=== PATIENT | male | born 1935 | race Caucasian/White ===

== ENCOUNTER → 2017-11-16 | Outpatient (CLI) | payer MEDICARE ==
[~2017-11-16] MED LIST: HTN MED; LISI20TA; METO-352; METO10TA3
[2017-11-16 09:12] LABS: ALBUMIN 4.5 GM/DL (3.2-4.5); BILIRUBIN,TOTAL 0.9 MG/DL (0.1-1.0); CALCIUM 10.1 MG/DL (8.5-10.1); CREATININE SERUM 1.19 MG/DL (0.60-1.30); POTASSIUM 4.3 MMOL/L (3.6-5.0); TOTAL PROTEIN 8.2 GM/DL (6.4-8.2)
== END ==
LOC: LAB 08:33
PROVIDERS: ATTEND Internal Medicine Cardiovascular Disease
DX: I25.10 Atherosclerotic heart disease of native coronary artery without angina pectoris (principal); E78.4 Other hyperlipidemia
CPT/HCPCS: 36415; 80053; 80061

== ENCOUNTER → 2018-12-22 | Outpatient (CLI) | payer MEDICARE | LOC: CARD 11:29 | PROVIDERS: ATTEND Internal Medicine Cardiovascular Disease | DX: I49.3 Ventricular premature depolarization (principal); I25.10 Atherosclerotic heart disease of native coronary artery without angina pectoris; I25.5 Ischemic cardiomyopathy; I11.0 Hypertensive heart disease with heart failure; I50.22 Chronic systolic (congestive) heart failure; E78.5 Hyperlipidemia, unspecified; I44.1 Atrioventricular block, second degree | CPT/HCPCS: 93225; 93226 ==

== ENCOUNTER → 2018-12-28 | Outpatient (CLI) | payer MEDICARE ==
[2018-12-28 08:51] LABS: BASOPHILS % (AUTO) 1 % (0-10); EOSINOPHILS # (AUTO) 0.2 10^3/uL (0.0-0.3); EOSINOPHILS % (AUTO) 4 % (0-10); HEMATOCRIT 45 % (40-54); HEMOGLOBIN 15.1 G/DL (13.3-17.7); LYMPHOCYTES # (AUTO) 1.2 X 10^3 (1.0-4.0); LYMPHOCYTES % (AUTO) 19 % (12-44); MEAN CORPUSCULAR HEMOGLOBIN 32 PG (25-34); MEAN CORPUSCULAR HGB CONC 33 G/DL (32-36); MEAN CORPUSCULAR VOLUME 96 FL (80-99); MONOCYTES # (AUTO) 0.9 X 10^3 (0.0-1.0); MONOCYTES % (AUTO) 14 % (0-12); NEUTROPHILS % (AUTO) 64 % (42-75); PLATELET COUNT 148 10^3/uL (130-400); RED CELL DISTRIBUTION WIDTH 13.4 % (10.0-14.5); WHITE BLOOD COUNT 6.3 10^3/uL (4.3-11.0)
[2018-12-28 09:14] LABS: ALANINE AMINOTRANSFERASE 20 U/L (0-55); ALBUMIN 4.3 GM/DL (3.2-4.5); ALKALINE PHOSPHATASE 85 U/L (40-136); BILIRUBIN,TOTAL 0.7 MG/DL (0.1-1.0); BUN/CREATININE RATIO 28; CALCIUM 9.8 MG/DL (8.5-10.1); CARBON DIOXIDE 23 MMOL/L (21-32); CHLORIDE 108 MMOL/L (98-107); CHOLESTEROL 93 MG/DL (< 200); CREATININE SERUM 1.14 MG/DL (0.60-1.30); GFR ESTIMATED > 60; GLUCOSE 93 MG/DL (70-105); HDL CHOLESTEROL 30 MG/DL (40-60); POTASSIUM 4.3 MMOL/L (3.6-5.0); SODIUM 140 MMOL/L (135-145); TOTAL PROTEIN 7.4 GM/DL (6.4-8.2); TRIGLYCERIDES 95 MG/DL (<150); VLDL CHOLESTEROL 19 MG/DL (5-40)
== END ==
LOC: LAB 08:30
PROVIDERS: ATTEND Internal Medicine Cardiovascular Disease
DX: I44.1 Atrioventricular block, second degree (principal); I49.3 Ventricular premature depolarization; I25.5 Ischemic cardiomyopathy; I11.0 Hypertensive heart disease with heart failure; E78.5 Hyperlipidemia, unspecified; I50.22 Chronic systolic (congestive) heart failure; I25.10 Atherosclerotic heart disease of native coronary artery without angina pectoris
CPT/HCPCS: 36415; 80053; 80061; 83735; 84443; 85025

== ENCOUNTER 2021-09-07 14:18 | Inpatient (IN) | payer MEDICARE ==
[~2021-09-07] VITALS: Ht 177 cm; Wt 84.7 kg
[2021-09-07] MEDS ORDERED: ASPIRIN 81 MG CHEW (CHILDREN'S ASA) PO ONE (14:45)
[2021-09-07] MEDS ORDERED: FUROSEMIDE 40 MG/4 ML INJ (LASIX) ONE (14:57)
[2021-09-07] MEDS ORDERED: FUROSEMIDE 40 MG/4 ML INJ (LASIX) IVP ONE (15:00)
[2021-09-07] MEDS ORDERED: ENOXAPARIN 40 MG/0.4 ML (LOVENOX) SYR SC ONE (15:00)
[2021-09-07 15:02] LABS: BASOPHILS # (AUTO) 0.1 10^3/uL (0.0-0.1); BASOPHILS % (AUTO) 1 % (0-10); EOSINOPHILS % (AUTO) 3 % (0-10); HEMOGLOBIN 17.2 g/dL (13.3-17.7); MEAN CORPUSCULAR HEMOGLOBIN 33 pg (25-34)
--- NOTE | 2021-09-07 15:03 | ED Cardiac General ---
History of Present Illness General Chief Complaint: Cardiac/General Problems Stated Complaint: LEGS SWELLING Source: patient Exam Limitations: no limitations (VIDYA ZUNIGA APRN) History of Present Illness Date Seen by Provider: Sep 07, 2021 Time Seen by Provider: 15:00 Initial Comments To ER from [facility] with reports of bradycardia. He presented there by private vehicle accompanied by his with reports of bilateral lower extremity swelling,, scrotal swelling, shortness of breath. No chest pain. Follows with Dr. Tello, history of coronary artery disease with 2 coronary stents. He informs me that he does not want to be resuscitated or placed on a ventilator if his heart should stop. He is okay with having a pacemaker placed. Timing/Duration: 1-2 days Severity: moderate Activities at Onset: none Prior CP/Workup: no prior chest pain NTG SL ALLEY TENDER: No ASA po ALLEY TENDER: No Associated Systoms: No Chest Pain, No Cough; Shortness of Air (VIDYA ZUNIGA APRN) Allergies and Home Medications Allergies Coded Allergies: Penicillins (Unverified Allergy, Mild, 12/31/08) Sulfa (Sulfonamide Antibiotics) (Verified Allergy, Unknown, 12/31/08) Patient Home Medication List Home Medication List Reviewed: Yes (VIDYA ZUNIGA APRN) Lisinopril (Zestril) 20 Mg Tablet, (Reported) Entered as Reported by: LANI CANNON on 12/31/08704 Metoclopramide Hcl (Metoclopramide Hcl) 10 Mg Tablet, (Reported) Entered as Reported by: LANI CANNON on 12/31/08704 Metoprolol Succinate (Toprol Xl) 50 Mg Tab, (Reported) Entered as Reported by: LANI CANNON on 12/31/08704 [Htn Med] , (Reported) Entered as Reported by: MARIMAR DIEGO on 12/31/08651 Review of Systems Review of Systems Constitutional: see HPI EENTM: No Symptoms Reported Respiratory: See HPI, Orthopnea Cardiovascular: See HPI, Chest Pain Gastrointestinal: No Symptoms Reported Genitourinary: No Symptoms Reported Musculoskeletal: no symptoms reported Skin: no symptoms reported Psychiatric/Neurological: No Symptoms Reported Endocrine: No Symptoms Reported Hematologic/Lymphatic: No Symptoms Reported (VIDYA ZUNIGA APRN) Past Ggefkog-Surgti-Nhxaty Hx Past Medical History Reproductive Disorders: No (VIDYA ZUNIGA APRN) Physical Exam Vital Signs Capillary Refill : (VIDYA ZUNIGA APRN) Height, Weight, BMI Height: '" Weight: lbs. oz. kg; BMI Method: General Appearance: No Apparent Distress, WD/WN, Other (Alert mentating well blood pressure is 180/120. Heart rate is 30 for complete heart block. Oxygen 99% respiratory rate 24. Defibrillator patches attached to them upon arrival to ER, Lasix Lovenox and aspirin given. Dr. Tello notified.) Respiratory: No Accessory Muscle Use, No Respiratory Distress Cardiovascular: Bradycardia, Irregularly Irregular Gastrointestinal: Normal Bowel Sounds, Non Tender, Soft Extremity: No Pedal Edema (3+ pitting edema up to the knees bilaterally.), Other (Cyanotic extremities and ears) Neurologic/Psychiatric: Alert Skin: Normal Color, Warm/Dry (VIDYA ZUNIGA APRN) Extremity: Pedal Edema (3+ bilateral lower extremity) Neurologic/Psychiatric: Oriented x3, Other (Hard of hearing) (SABA CRAIG MD) Progress/Results/Core Measures Results/Orders Lab Results Laboratory Tests Test 09/07/21 14:54 Range/Units (SABA CRAIG MD) My Orders Orders - SABA CRAIG MD Furosemide Injection (Lasix Injection) (09/07/21 14:57) (SABA CRAIG MD) Medications Given in ED Current Medications Medications Dose Ordered Sig/Sarah Route Start Time Stop Time Status Last Admin Dose Admin Aspirin 324 mg ONCE ONCE PO 09/07/21 14:45 09/07/21 14:46 DC 09/07/21 14:59 324 MG (SABA CRAIG MD) Progress Progress Note : Progress Note 1506: I did see the patient with Vidya Zuniga APRN and was at bedside for evaluation. Patient does show clear third-degree heart block on EKG and monitor. Blood pressure is appropriate though and actually he is slightly hypertensive. He does have marked edema to both legs. Denies chest pain currently. I did discuss the case with Dr Mejia and reviewed EKG and current findings. He is recommending ASA 324 mg p.o., Lasix 40 mg IV, Lovenox 40 mg subcu and he will be on consult. Recommending admission with pacemaker place ment to follow likely tomorrow. He is okay with cardiac stepdown bed. Patient previously was under the service of Dr. Love but now does not have primary physician and usually just sees Dr Mejia. He will be admitted to the hospitalist service. Pending labs for review and we will ensure appropriate electrolyte balance. Admit, inpatient status. Patient and family updated by me and agree with the plan. We did discuss CODE STATUS with the patient and and he request DNR status. (SABA CRAIG MD) Initial ECG Impression Date: Sep 07, 2021 Initial ECG Impression Time: 14:42 Initial ECG Rate: 35 Comment Third-degree heart block with junctional escape rhythm and interventricular conduction delay. Mild ST elevation in leads II, III and aVF it would appear. Left axis deviation noted. I did discuss the case with Dr. Mejia and reviewed EKG with him. He does not believe this is ST elevation AL and represents more escape rhythm with interventricular conduction delay for which I agree. (SABA CRAIG MD) Departure Communication (Admissions) NAME: [facility] REC#: [id number] PT STATUS: REG ER : 1935 PHYSICIAN: VIDYA ZUNIGA APRN ADMIT DATE: 09/07/21/ER Draft Date of Exam:09/07/21 CHEST 1 VIEW, AP/PA ONLY Indication: Chest pain. Comparison: None. Discussion: Single portable upright view of the chest was obtained. The fibular patches are present. Cardiomegaly is noted. There is likely a small right pleural effusion. No consolidation. No pneumothorax or osseous abnormality. Impression: 1. Cardiomegaly with small right pleural effusion. Dictated on workstation # [id number] Dict: 09/07/21 1522 Trans: 09/07/21 1526 [facility] [id number] Interpreted by: MARTÍNEZ MOJICA MD Electronically signed by: (VIDYA ZUNIGA APRN) Time/Spoke to Consulting Phy: 14:58 (SABA CRAIG MD) Impression Primary Impression: Complete heart block Additional Impression: CHF (congestive heart failure) Disposition: ADMITTED INPATIENT Condition: Stable Admissions Decision to Admit Reason: Admit from ER (General) Decision to Admit/Date: Sep 07, 2021 Time/Decision to Admit Time: 15:03 (VIDYA ZUNIGA APRN) Departure-Patient Inst. Referrals: NO,LOCAL PHYSICIAN (PCP/Family) Primary Care Physician VIDYA ZUNIGA APRN Sep 07, 2021 15:03 SABA CRAIG MD Sep 07, 2021 15:10
[2021-09-07 15:04] LABS: EOSINOPHILS # (AUTO) 0.2 10^3/uL (0.0-0.3); HEMATOCRIT 52 % (40-54); LYMPHOCYTES # (AUTO) 0.4 10^3/uL (1.0-4.0); LYMPHOCYTES % (AUTO) 4 % (12-44); MEAN CORPUSCULAR HGB CONC 33 g/dL (32-36); MEAN CORPUSCULAR VOLUME 100 fL (80-99); MEAN PLATELET VOLUME 13.5 fL (9.0-12.2); MONOCYTES # (AUTO) 0.9 10^3/uL (0.0-1.0); MONOCYTES % (AUTO) 11 % (0-12); NEUTROPHILS # (AUTO) 6.9 10^3/uL (1.8-7.8); NEUTROPHILS % (AUTO) 81 % (42-75); PLATELET COUNT 118 10^3/uL (130-400); WHITE BLOOD COUNT 8.5 10^3/uL (4.3-11.0)
[2021-09-07 15:16] LABS: INR 1.1 (0.8-1.4); PROTHROMBIN TIME PATIENT 14.9 SEC (12.2-14.7)
[2021-09-07 15:18] LABS: ALBUMIN 3.5 GM/DL (3.2-4.5); POTASSIUM 4.8 MMOL/L (3.6-5.0)
[2021-09-07 15:19] LABS: CALCIUM 9.1 MG/DL (8.5-10.1)
[2021-09-07 15:22] LABS: BILIRUBIN,TOTAL 1.3 MG/DL (0.1-1.0)
[2021-09-07 15:24] LABS: CREATININE SERUM 1.12 MG/DL (0.60-1.30); EOSINOPHILS % (MANUAL) 3 %; LYMPHOCYTES % (MANUAL) 5 %; MONOCYTES % (MANUAL) 9 %; NEUTROPHILS % (MANUAL) 83 %; RBC MORPH NORMAL
--- NOTE | 2021-09-07 15:26 | Diagnostic Imaging Report ---
Indication: Chest pain. Comparison: None. Discussion: Single portable upright view of the chest was obtained. The fibular patches are present. Cardiomegaly is noted. There is likely a small right pleural effusion. No consolidation. No pneumothorax or osseous abnormality. Impression: 1. Cardiomegaly with small right pleural effusion. Dictated by: Dictated on workstation # [id number]
[2021-09-07 15:27] LABS: MAGNESIUM 1.7 MG/DL (1.6-2.4)
[2021-09-07 16:40] VITALS: BP 144/83
[2021-09-07] MEDS ORDERED: CATHETER FLUSH 10 ML SYR IV PRN (17:00)
[2021-09-07] MEDS ORDERED: FAMO20TA3 PO (18:05)
[2021-09-07] MEDS ORDERED: ASPI-999 PO (18:05)
[2021-09-07] MEDS ORDERED: MTP100TCR PO (18:05)
[2021-09-07] MEDS ORDERED: LOSA100T57 PO (18:05)
[2021-09-07] MEDS ORDERED: LOVA20TA2 PO (18:05)
[2021-09-07] MEDS: FUROSEMIDE 40 MG/4 ML INJ (LASIX) IVP SCH (21:27)
[2021-09-07] MEDS: CATHETER FLUSH 10 ML SYR IV SCH (21:28)
[2021-09-07] MEDS ORDERED: ACETAMINOPHEN 325 MG TABLET ONE (21:42)
[2021-09-07] MEDS ORDERED: ACETAMINOPHEN 500 MG TAB (TYLENOL) PO PRN (21:45)
[2021-09-08 06:10] LABS: BASOPHILS # (AUTO) 0.1 10^3/uL (0.0-0.1); BASOPHILS % (AUTO) 1 % (0-10)
[2021-09-08 06:12] LABS: EOSINOPHILS # (AUTO) 0.3 10^3/uL (0.0-0.3); EOSINOPHILS % (AUTO) 3 % (0-10); HEMATOCRIT 49 % (40-54); HEMOGLOBIN 16.6 g/dL (13.3-17.7); LYMPHOCYTES # (AUTO) 0.4 10^3/uL (1.0-4.0); LYMPHOCYTES % (AUTO) 4 % (12-44); MEAN CORPUSCULAR HEMOGLOBIN 33 pg (25-34); MEAN CORPUSCULAR HGB CONC 34 g/dL (32-36); MEAN CORPUSCULAR VOLUME 97 fL (80-99); MONOCYTES % (AUTO) 11 % (0-12); NEUTROPHILS # (AUTO) 7.2 10^3/uL (1.8-7.8); NEUTROPHILS % (AUTO) 81 % (42-75); PLATELET COUNT 99 10^3/uL (130-400); WHITE BLOOD COUNT 8.9 10^3/uL (4.3-11.0)
[2021-09-08 06:35] LABS: TRIGLYCERIDES 69 MG/DL (<150); VLDL CHOLESTEROL 14 MG/DL (5-40)
[2021-09-08 06:40] LABS: CHOLESTEROL 78 MG/DL (< 200); HDL CHOLESTEROL 35 MG/DL (40-60)
[2021-09-08 06:48] LABS: POTASSIUM 4.2 MMOL/L (3.6-5.0)
[2021-09-08 06:49] LABS: CALCIUM 8.8 MG/DL (8.5-10.1)
[2021-09-08 06:53] LABS: CREATININE SERUM 1.16 MG/DL (0.60-1.30)
[2021-09-08 07:52] LABS: TOTAL PROTEIN 5.9 GM/DL (6.4-8.2)
[2021-09-08 07:54] LABS: BILIRUBIN,TOTAL 1.7 MG/DL (0.1-1.0)
[2021-09-08 07:58] LABS: BILIRUBIN,DIRECT 0.8 MG/DL (0.0-0.3); BILIRUBIN,INDIRECT 0.9 MG/DL
[2021-09-08] MEDS: FUROSEMIDE 40 MG/4 ML INJ (LASIX) IVP SCH (08:06)
--- NOTE | 2021-09-08 09:32 | History & Physical ---
HPI History of Present Illness: Having shortness of breath for about a month. His granddaughter works at a senior care and he had her bring him a COVID19 test which was negative. The next morning his grandson and daughter took him to the clinic and they were told to bring him to the hospital right away. He states he feels about the same today. He has not had COVID vaccination, he is interested in it, but wants to talk to his first. Source: patient Exam Limitations: clinical condition Date seen by provider: Sep 08, 2021 Time Seen by Provider: 09:35 Attending Physician Gris Sin MD PCP No,Local Physician Consult Date of Admission Sep 07, 2021 at 15:06 Home Medications Home Medications Reviewed patient Home Medication Reconciliation performed by pharmacy medication reconciliations biodiesel production technician and/or nursing. Patients Allergies have been reviewed. Allergies Coded Allergies: Penicillins (Unverified Allergy, Mild, 12/31/08) Sulfa (Sulfonamide Antibiotics) (Verified Allergy, Unknown, 12/31/08) LAZ-Zjwmeg-Akopxl Hx Patient Social History Smoking Status: Former Smoker (quit around 1989) Alcohol Use?: No Have you traveled recently?: No Immunizations Up To Date Influenza Vaccine Up-to-Date: No; Not Current First/Initial COVID19 Vaccinat: None Second COVID19 Vaccination Cabrera: None Third COVID19 Vaccination Date: None Past Medical History PMHx: Coronary artery disease Hypertension SurgHx: Coronary artery stenting Review of Systems (CHC) Constitutional: No fever EENTM: other (runny nose all the time); No throat pain Respiratory: cough (off and on for some time), short of breath Cardiovascular: No chest pain Gastrointestinal: abdominal pain (occasional bellyache); No constipation; diarrhea (occasional); No nausea, No vomiting Genitourinary: No dysuria Musculoskeletal: joint pain (right hand hurting this morning and about a week ago); No muscle pain Skin: rash (around testicles, non-itching) Reviewed Test Results Reviewed Test Results Lab Laboratory Tests Test 09/07/21 14:54 09/08/21 05:58 Range/Units White Blood Count 8.5 8.9 4.3-11.0 10^3/uL Red Blood Count 5.19 5.04 4.30-5.52 10^6/uL Hemoglobin 17.2 16.6 13.3-17.7 g/dL Hematocrit 52 49 40-54 % Mean Corpuscular Volume 100 H 97 80-99 fL Mean Corpuscular Hemoglobin 33 33 25-34 pg Mean Corpuscular Hemoglobin Concent 33 34 32-36 g/dL Red Cell Distribution Width 14.6 H 14.4 10.0-14.5 % Platelet Count 118 L 99 L 130-400 10^3/uL Mean Platelet Volume 13.5 H 13.0 H 9.0-12.2 fL Immature Granulocyte % (Auto) 0 0 % Neutrophils (%) (Auto) 81 H 81 H 42-75 % Lymphocytes (%) (Auto) 4 L 4 L 12-44 % Monocytes (%) (Auto) 11 11 0-12 % Eosinophils (%) (Auto) 3 3 0-10 % Basophils (%) (Auto) 1 1 0-10 % Neutrophils # (Auto) 6.9 7.2 1.8-7.8 10^3/uL Lymphocytes # (Auto) 0.4 L 0.4 L 1.0-4.0 10^3/uL Monocytes # (Auto) 0.9 1.0 0.0-1.0 10^3/uL Eosinophils # (Auto) 0.2 0.3 0.0-0.3 10^3/uL Basophils # (Auto) 0.1 0.1 0.0-0.1 10^3/uL Immature Granulocyte # (Auto) 0.0 0.0 0.0-0.1 10^3/uL Neutrophils % (Manual) 83 % Lymphocytes % (Manual) 5 % Monocytes % (Manual) 9 % Eosinophils % (Manual) 3 % Percent Immature Platelet Fraction 8.7 H 8.1 H 0.0-7.6 % Blood Morphology Comment NORMAL Prothrombin Time 14.9 H 12.2-14.7 SEC INR Comment 1.1 0.8-1.4 Activated Partial Thromboplast Time 30 24-35 SEC Sodium Level 137 139 135-145 MMOL/L Potassium Level 4.8 4.2 3.6-5.0 MMOL/L Chloride Level 109 H 105 98-107 MMOL/L Carbon Dioxide Level 18 L 21 21-32 MMOL/L Anion Gap 10 13 5-14 MMOL/L Blood Urea Nitrogen 37 H 35 H 7-18 MG/DL Creatinine 1.12 1.16 0.60-1.30 MG/DL Estimat Glomerular Filtration Rate 62 60 BUN/Creatinine Ratio 33 30 Glucose Level 100 90 70-105 MG/DL Calcium Level 9.1 8.8 8.5-10.1 MG/DL Corrected Calcium 9.5 8.5-10.1 MG/DL Magnesium Level 1.7 1.6-2.4 MG/DL Total Bilirubin 1.3 H 1.7 H 0.1-1.0 MG/DL Aspartate Amino Transf (AST/SGOT) 49 H 45 H 5-34 U/L Alanine Aminotransferase (ALT/SGPT) 61 H 50 0-55 U/L Alkaline Phosphatase 143 H 119 40-136 U/L Myoglobin 155.7 H 10.0-92.0 NG/ML Troponin I 0.091 H <0.028 NG/ML B-Type Natriuretic Peptide 3652.2 H <100.0 PG/ML Total Protein 7.0 5.9 L 6.4-8.2 GM/DL Albumin 3.5 3.0 L 3.2-4.5 GM/DL Direct Bilirubin 0.8 H 0.0-0.3 MG/DL Indirect Bilirubin 0.9 MG/DL Triglycerides Level 69 <150 MG/DL Cholesterol Level 78 < 200 MG/DL LDL Cholesterol Direct 28 1-129 MG/DL VLDL Cholesterol 14 5-40 MG/DL HDL Cholesterol 35 L 40-60 MG/DL Radiology CXR 09/07/21: Impression: 1. Cardiomegaly with small right pleural effusion. Physical Exam-(CHC) Physical Exam Vital Signs VS - Last 72 Hours, by Label 09/07/21 09/07/21 09/07/21 09/07/21 14:31 16:40 16:49 16:51 Temp 36.6 Pulse 35 34 35 Resp 25 22 20 B/P (MAP) 160/102 (121) 144/83 139/73 Pulse Ox 94 95 99 O2 Delivery Room Air Room Air Room Air Room Air 09/07/21 09/07/21 09/07/21 09/07/21 16:52 19:00 19:41 21:00 Temp 36.8 Pulse 33 40 35 Resp 21 B/P (MAP) 144/79 Pulse Ox 96 O2 Delivery Room Air Room Air 09/08/21 09/08/21 09/08/2109/08/21 00:00 01:00 04:00 07:00 Temp 37.0 36.5 Pulse 36 36 35 39 Resp 14 22 B/P (MAP) 159/62 114/66 Pulse Ox 94 96 O2 Delivery Room Air Room Air 09/08/21 08:10 Pulse 36 Resp 14 B/P (MAP) 180/91 Pulse Ox 96 O2 Delivery Room Air Capillary Refill : Less Than 3 Seconds General Appearance: no apparent distress Respiratory: rales Cardiovascular: no murmur, bradycardia Gastrointestinal: normal bowel sounds, non tender, soft Extremities: pedal edema (2+ pitting edema to above knees) Neurologic/Psychiatric: alert, normal mood/affect, oriented x 3 Skin: other (erythema with extension to thighs over scrotum) Assessment/Plan Assessment/Plan Admission Status: Inpatient Order (span 2 midnights) Reason for Inpatient Admission: Sevre bradycardia with CHF exacerbation (1) Complete heart block Status: Acute Assessment & Plan: Hemodynamically stable so far, plan for pacemaker per Cardiology later today. (2) Coronary artery disease Status: Chronic Qualifiers: Qualified Codes: I25.10 - Atherosclerotic heart disease of [place] coronary artery without angina pectoris (3) CHF (congestive heart failure) Status: Acute Assessment & Plan: Cardiology consulted, appreciate recommendations. Currently on lasix 40 mg IV BID. 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 (6) DVT prophylaxis Status: Acute Assessment & Plan: Enoxaparin when okay with Cardiology Clinical Quality Measures AMI/AHF: ASA po Prior to arrival: GRIS Leija MD Sep 08, 2021 09:32
[2021-09-08] MEDS ORDERED: ARTIFICAL TEARS 0.4 ML UNIT DOSE (REFRESH PLUS) OU PRN (09:45)
[2021-09-08] MEDS ORDERED: MIDAZOLAM 5 MG/5 ML (VERSED) VIAL ONE (10:19)
[2021-09-08] MEDS ORDERED: fentaNYL INJ 100 MCG/2 ML AMP ONE (10:19)
[2021-09-08] MEDS ORDERED: LIDOCAINE 1% INJ 20 ML 20 ML VIAL ONE (10:20)
[2021-09-08] MEDS ORDERED: NS IV 1000 ML 1,000 ML ONE ×2 (10:20→10:50)
[2021-09-08] MEDS ORDERED: HEParin (CATH LAB) 1,000 ML IV ONE (10:20)
[2021-09-08] MEDS ORDERED: VANCOMYCIN INJECTION 0.1 MG in NS (IVPB) 250 ML IV SCH (10:30)
[2021-09-08] MEDS ORDERED: VANCOMYCIN 1500 MG/NS 500 ML IVPB IV NR ×2 (11:00)
--- NOTE | 2021-09-08 11:09 | Consultation-Cardiology ---
HPI-Cardiology Cardiology Consultation: Date of Consultation 09/08/21 Time Seen by a Provider: 09:30 Date of Admission Attending Physician Viola Sin MD Admitting Physician No,Local Physician Consulting Physician VIPUL HOYOS MD, MA, FACP, FACC, FSCAI, CCDS HPI: Chief Complaint: Shortness of breath 85 yo man with increasing shortness of breath for several weeks. Has been noticing increasing leg swelling and also some scrotal swelling. Denies cp or palp or syncope. Notes gen malaise and weakness. Denies fever or chills Review of Systems-Cardiology Review of Systems Constitutional: As described under HPI Eyes: No vision change Ears/Nose/Throat: chronic hearing loss; No ear pain, No nasal drainage, No recent hearing loss Respiratory: As described under HPI Cardiovascular: As described under HPI Gastrointestinal: No diarrhea, No nausea, No vomiting Genitourinary: No hematuria; other (chronic frequency of urination); No urine frequency changes Musculoskeletal: back pain (chronic) Skin: No rash, No ulcerations Psychiatric/Neurological: No seizure, No focal weakness, No syncope Hematologic: No bleeding abnormalities PHE-Gcmjpn-Yzseak Hx Patient Social History Smoking Status: Former Smoker (quit around 1989) Have you traveled recently?: No Alcohol Use?: No Pt feels they are or have been: No Past Medical History PMH As described under Assessment. Family Medical History Family Medical History: Does not report fam h/o early CAD Allergies and Home Medications Allergies Coded Allergies: Penicillins (Unverified Allergy, Mild, 12/31/08) Sulfa (Sulfonamide Antibiotics) (Verified Allergy, Unknown, 12/31/08) Patient Home Medication List Home Medication List Reviewed: Yes Aspirin (Aspirin) 81 Mg Tab.chew, 81 MG PO DAILY, (Reported) Entered as Reported by: VITO GARCES RN on 09/07/211804 Last Action: New Order Famotidine (Acid Creative Recruiter (FAMOTIDINE)) 20 Mg Tablet, 20 MG PO DAILY, (Reported) Entered as Reported by: VITO GARCES RN on 09/07/211804 Last Action: New Order Losartan Potassium (Losartan Potassium) 100 Mg Tablet, 100 MG PO DAILY, (Reporte d) Entered as Reported by: VITO GARCES RN on 09/07/211804 Last Action: New Order Lovastatin (Lovastatin) 20 Mg Tablet, 20 MG PO DAILY, (Reported) Entered as Reported by: VITO GARCES RN on 09/07/211804 Last Action: Converted Metoprolol Succinate (Metoprolol Succinate) 100 Mg Tab.er.24h, 100 MG PO DAILY, (Reported) Entered as Reported by: VITO GARCES RN on 09/07/211804 Last Action: New Order Discontinued Medications Lisinopril (Zestril) 20 Mg Tablet, (Reported) Discontinued Reason: No Longer Taking Entered as Reported by: LANI CANNON on 12/31/08704 Last Action: Discontinued Metoclopramide Hcl (Metoclopramide Hcl) 10 Mg Tablet, (Reported) Discontinued Reason: No Longer Taking Entered as Reported by: LANI CANNON on 12/31/08704 Last Action: Discontinued Metoprolol Succinate (Toprol Xl) 50 Mg Tab, (Reported) Discontinued Reason: No Longer Taking Entered as Reported by: LANI CANNON on 12/31/08704 Last Action: Discontinued [Htn Med] , (Reported) Discontinued Reason: No Longer Taking Entered as Reported by: MARIMAR DIEGO on 12/31/08651 Last Action: Discontinued Physical Exam-Cardiology Physical Exam Vital Signs/I&O 09/08/21 09/08/21 09/08/21 09/08/21 00:00 01:00 04:00 07:00 Temp 37.0 36.5 Pulse 36 36 35 39 Resp 14 22 B/P (MAP) 159/62 114/66 Pulse Ox 94 96 O2 Delivery Room Air Room Air 09/08/21 08:10 Pulse 36 Resp 14 B/P (MAP) 180/91 Pulse Ox 96 O2 Delivery Room Air 09/07/21 23:59 Intake Total 100 ml Output Total 1250 ml Balance -1150 ml Capillary Refill : Less Than 3 Seconds Constitutional: AAO x 3, well-developed, well-nourished HEENT: EOMI, hard of hearing; No xanthelasmas are seen Neck: carotid pulses are 2 + bilaterally, with good upstrokes Respiratory: No accessory muscle use; other (good air entry on both sides, diminished at the bases) Cardiovascular: regular rate-rhythm, S1 and S2, systolic murmur (soft [place] at card base) Gastrointestinal: No tender; soft; No guarding, No rebound; audible bowel sounds Extremities: swelling (2+ leg edema; mild to mod scrotal swelling on both sides); No clubbing, No cyanosis Neurologic/Psychiatric: oriented x 3, other (moves all limbs equally) Skin: No rash, No ulcerations Data Review Labs Laboratory Tests 09/07/21 14:54: White Blood Count 8.5, Red Blood Count 5.19, Hemoglobin 17.2, Hematocrit 52, Mean Corpuscular Volume 100H, Mean Corpuscular Hemoglobin 33, Mean Corpuscular Hemoglobin Concent 33, Red Cell Distribution Width 14.6H, Platelet Count 118L, Mean Platelet Volume 13.5H, Immature Granulocyte % (Auto) 0, Neutrophils (%) (Auto) 81H, Lymphocytes (%) (Auto) 4L, Monocytes (%) (Auto) 11, Eosinophils (%) (Auto) 3, Basophils (%) (Auto) 1, Neutrophils # (Auto) 6.9, Lymphocytes # (Auto) 0.4L, Monocytes # (Auto) 0.9, Eosinophils # (Auto) 0.2, Basophils # (Auto) 0.1, Immature Granulocyte # (Auto) 0.0, Neutrophils % (Manual) 83, Lymphocytes % (Manual) 5, Monocytes % (Manual) 9, Eosinophils % (Manual) 3, Percent Immature Platelet Fraction 8.7H, Blood Morphology Comment NORMAL, Prothrombin Time 14.9H, INR Comment 1.1, Activated Partial Thromboplast Time 30, Sodium Level 137, Potassium Level 4.8, Chloride Level 109H, Carbon Dioxide Level 18L, Anion Gap 10, Blood Urea Nitrogen 37H, Creatinine 1.12, Estimat Glomerular Filtration Rate 62, BUN/Creatinine Ratio 33, Glucose Level 100, Calcium Level 9.1, Corrected Calcium 9.5, Magnesium Level 1.7, Total Bilirubin 1.3H, Aspartate Amino Transf (AST/SGOT) 49H, Alanine Aminotransferase (ALT/SGPT) 61H, Alkaline Phosphatase 143H, Myoglobin 155.7H, Troponin I 0.091H, B-Type Natriuretic Peptide 3652.2H, Total Protein 7.0, Albumin 3.5 09/08/21 05:58: White Blood Count 8.9, Red Blood Count 5.04, Hemoglobin 16.6, Hematocrit 49, Mean Corpuscular Volume 97, Mean Corpuscular Hemoglobin 33, Mean Corpuscular He moglobin Concent 34, Red Cell Distribution Width 14.4, Platelet Count 99L, Mean Platelet Volume 13.0H, Immature Granulocyte % (Auto) 0, Neutrophils (%) (Auto) 81H, Lymphocytes (%) (Auto) 4L, Monocytes (%) (Auto) 11, Eosinophils (%) (Auto) 3, Basophils (%) (Auto) 1, Neutrophils # (Auto) 7.2, Lymphocytes # (Auto) 0.4L, Monocytes # (Auto) 1.0, Eosinophils # (Auto) 0.3, Basophils # (Auto) 0.1, Im mature Granulocyte # (Auto) 0.0, Percent Immature Platelet Fraction 8.1H, Sodium Level 139, Potassium Level 4.2, Chloride Level 105, Carbon Dioxide Level 21, Anion Gap 13, Blood Urea Nitrogen 35H, Creatinine 1.16, Estimat Glomerular Filtration Rate 60, BUN/Creatinine Ratio 30, Glucose Level 90, Calcium Level 8.8, Total Bilirubin 1.7H, Aspartate Amino Transf (AST/SGOT) 45H, Alanine Aminotransferase (ALT/SGPT) 50, Alkaline Phosphatase 119, Total Protein 5.9L, Albumin 3.0L, Direct Bilirubin 0.8H, Indirect Bilirubin 0.9, Triglycerides Level 69, Cholesterol Level 78, LDL Cholesterol Direct 28, VLDL Cholesterol 14, HDL Cholesterol 35L Laboratory Tests 09/07/21 14:54 09/08/21 05:58 A/P-Cardiology Assessment/Admission Diagnosis Complete heart block Coronary artery disease - Cardiac cath December 2008: with a history of drug-eluting stenting of the mid left anterior descending - Cardiac cath January 2009: LULI of the left circumflex obtuse marginal . - Refuses MPI. ICM: - Echocardiogram from August 2013 showed LVEF 45-50%. - Most recent echo of January 2019 showed LVEF 50-55%. Grade 1 diastolic dysfunction. Mild to MR. Mild AoR. Small amt of pericardial effusion that does not appear to be of hemodynamic signif. RVSP approx 27 mmHg Mild chronic renal insufficiency - stable. Managed by PCP Carotid dz - Carotid u/s of January 2019 showed 60-79% R ICA stenosis. Approx 50% L ICA stenosis. Medication Intolerance: - Intolerance to JOSE inhibitors on account of cough. Hypertension - controlled Hyperlipidemia - being treated with lovastatin. Managed by PCP Abnormal ECG - ECG of 12/20/18 shows NSR with Wenckeback AV block, LBBB, and isolated PVCs Chronic right inguinal hernia - for which he has opted not to have surgery Frequent urination, - chronic, for which he follows with his PCP Chronic hardness of hearing Discussion and Recomendations * Dual chamber pacemaker recommended. I discussed with him in detail the rationale, procedure, risks, benefits, potential complications and alternatives of the procedure. He understands and provides informed consent * Diuretics as needed and as tolerated * Monitor labs Clinical Quality Measures AMI/AHF: ASA po Prior to arrival: VIPUL Rizo MD FACP FAC CCDS Sep 08, 2021 11:09
[2021-09-08] MEDS ORDERED: MIDAZOLAM 2 MG/2 ML (VERSED) VIAL ONE (12:31)
[2021-09-08] MEDS ORDERED: amLODIPine 5 MG (NORVASC) TAB PO ONE (12:45)
[2021-09-08] MEDS ORDERED: PATIENT MAY USE OWN MEDS, ALL PO SCH (12:45)
[2021-09-08] MEDS ORDERED: FUROSEMIDE 20 MG (LASIX) TAB PO ONE (12:45)
[2021-09-08] MEDS ORDERED: NS IV 1000 ML 1,000 ML IV SCH (12:45)
[2021-09-08] MEDS ORDERED: ACETAMINOPHEN 325 MG TABLET PO PRN (12:45)
--- NOTE | 2021-09-08 12:55 | Diagnostic Imaging Report ---
INDICATION: Cardiac device placement. TIME OF EXAM: 12:49 PM Correlation is made prior chest 09/07/2021. Heart is enlarged. Cardiac pacer has been placed has lead tips in region of right atrium and right ventricle. Lungs appear clear. No infiltrate, effusion or pneumothorax is seen. IMPRESSION: Pacemaker placement. No pneumothorax is identified. Dictated by: Dictated on workstation # [id number]
[2021-09-08] MEDS ORDERED: morphine INJ 4 MG/ML 1 ML (VIAL/SYRINGE) IVP PRN (13:15)
[2021-09-08] MEDS ORDERED: morphine INJ 4 MG/ML 1 ML (VIAL/SYRINGE) ONE (13:27)
[2021-09-08] MEDS: CATHETER FLUSH 10 ML SYR IV SCH ×3 (14:00→21:39)
--- NOTE | 2021-09-08 16:31 | OPERATIVE REPORT ---
DATE OF SERVICE: 09/08/2021 PREOPERATIVE DIAGNOSIS: Complete heart block. POSTOPERATIVE DIAGNOSIS: Complete heart block. PROCEDURE: Dual chamber pacemaker implantation. ESTIMATED BLOOD LOSS: Less than 20 mL. INDICATIONS: The patient is an 85-year-old gentleman who has complete heart block and who has been symptomatic from it. New dual chamber pacemaker implantation was carried out today after having obtained an informed consent. DESCRIPTION OF PROCEDURE: He was brought to the cardiac catheterization laboratory in a fasting state. The left prepectoral area was prepared and draped in the usual sterile fashion. Lidocaine 1% was used for local anesthesia. Modified Seldinger technique was used to advance 2 guidewires into the left subclavian vein and the tip of the guidewires were placed in the right atrium. Subsequently, we used sharp and blunt dissection to make a pacemaker pocket. Good hemostasis was assured. The guidewires were used to advance sheaths and the wires were removed. The sheaths were used to advance leads and the sheaths were removed. The leads were positioned under fluoroscopy. The ventricular lead was placed at the right ventricular apex and actively fixed. The atrial lead was placed at the right atrial appendage and actively fixed. R waves were measured at 6.5 millivolts. Pacing impedance in the ventricle was 751 ohms. Capture threshold was 0.8 volts at 0.4 milliseconds. P-wave amplitude was 1.9 millivolts. Atrial lead impedance was 534 ohms. Atrial capture threshold was 1.4 volts at 0.4 milliseconds. The leads were sutured to the prepectoral fascia using 0 Ethibond. The pacemaker pocket had been packed with saline gauze. This was removed. The pocket was thoroughly irrigated with an antibiotic solution. Good hemostasis was assured. The leads were attached to a dual chamber pacemaker and the pacemaker and leads were placed in the pocket and the pocket was closed in 2 layers using 3.0 Vicryl. The right atrial lead is [employer]. Blaze, serial #[id number]. The ventricular lead is [employer]. Blaze with serial #[id number]. The leads were attached to a dual chamber pacemaker. This is a [employer]. Blaze with serial #[id number]. The device a DDDR mode with a lower rate of 60 beats per minute and upper rate of 130 beats per minute. Job ID: [id number] DocumentID: [id number] Dictated Date: 09/08/2021 12:29:43 Director Epidemiology Date: 09/08/2021 16:31:02 Dictated By: VIPUL HOYOS MD, MA, FACP, FACC,
[2021-09-08] MEDS ORDERED: LORazepam 0.5 MG (ATIVAN) TABLET PO PRN (17:00)
[2021-09-08] MEDS: NYSTATIN OINTMENT 30 GM TUBE TOP SCH (21:38)
[2021-09-08] MEDS: CIPROFLOXACIN 500 MG (CIPRO) TABLET PO SCH (21:38)
[2021-09-09 04:54] LABS: HEMOGLOBIN 15.4 g/dL (13.3-17.7); MEAN PLATELET VOLUME 13.1 fL (9.0-12.2); WHITE BLOOD COUNT 8.5 10^3/uL (4.3-11.0)
[2021-09-09 05:11] LABS: ALBUMIN 2.8 GM/DL (3.2-4.5)
[2021-09-09 05:12] LABS: CALCIUM 8.4 MG/DL (8.5-10.1)
[2021-09-09 05:13] LABS: TOTAL PROTEIN 5.7 GM/DL (6.4-8.2)
[2021-09-09 05:15] LABS: BILIRUBIN,TOTAL 1.9 MG/DL (0.1-1.0)
[2021-09-09 05:17] LABS: CREATININE SERUM 1.1 MG/DL (0.60-1.30)
--- NOTE | 2021-09-09 08:40 | Progress Note - Cardiology ---
Cardiology SOAP Progress Note Objective: I&O/Vital Signs 09/08/21 09/08/21 09/09/21 09/09/21 21:00 21:10 00:00 01:01 Temp 37.2 Pulse 95 97 Resp 20 B/P (MAP) 145/63 Pulse Ox 95 95 93 O2 Delivery Nasal Cannula Nasal Cannula Nasal Cannula O2 Flow Rate 4.00 3.00 4.00 09/09/21 09/09/21 09/09/21 04:00 07:00 08:10 Temp 37.5 37.0 Pulse 103 87 90 Resp 21 17 B/P (MAP) 143/73 161/83 Pulse Ox 92 94 O2 Delivery Room Air O2 Flow Rate 4.00 09/09/21 00:00 Intake Total 400 ml Output Total 2800 ml Balance -2400 ml Constitutional: AAO x 3, well-developed, well-nourished Respiratory: No accessory muscle use; other (good air entry on both sides, diminished at the bases) Cardiovascular: regular rate-rhythm, S1 and S2, systolic murmur (soft CARLOTA at card base) Gastrointestional: No tender; soft; No guarding, No rebound; audible bowel sounds Extremities: swelling (2+ leg edema; mild to mod scrotal swelling on both sides ); No clubbing, No cyanosis Neurologic/Psychiatric: oriented x 3, other (moves all limbs equally) Skin: No rash, No ulcerations Results/Procedures: Labs Laboratory Tests 09/09/21 04:42: White Blood Count 8.5, Red Blood Count 4.69, Hemoglobin 15.4, Hematocrit 45, Mean Corpuscular Volume 97, Mean Corpuscular Hemoglobin 33, Mean Corpuscular Hemoglobin Concent 34, Red Cell Distribution Width 14.3, Platelet Count 95L, Mean Platelet Volume 13.1H, Percent Immature Platelet Fraction 6.3, Sodium Level 136, Potassium Level 4.0, Chloride Level 102, Carbon Dioxide Level 22, Anion Gap 12, Blood Urea Nitrogen 31H, Creatinine 1.10, Estimat Glomerular Filtration Rate 63, BUN/Creatinine Ratio 28, Glucose Level 89, Calcium Level 8.4L, Corrected Calcium 9.4, Total Bilirubin 1.9H, Aspartate Amino Transf (AST/SGOT) 53H, Alanine Aminotransferase (ALT/SGPT) 39, Alkaline Phosphatase 108, Total Protein 5.7L, Albumin 2.8L Microbiology 12/19/21 MRSA Screen - Final, Complete MRSA not isolated Procedures NAME: [facility] REC#: [id number] PT STATUS: ADM IN : 1935 PHYSICIAN: VIPUL HOYOS MD, MA, FACP, FACC, FSCAI, CCDS ADMIT DATE: 09/07/21/[facility] Signed Date of Exam:09/08/21 CHEST PA/LAT (2 VIEW) INDICATION: Cardiac device placement. TIME OF EXAM: 12:49 PM Correlation is made prior chest 09/07/2021. Heart is enlarged. Cardiac pacer has been placed has lead tips in region of right atrium and right ventricle. Lungs appear clear. No infiltrate, effusion or pneumothorax is seen. IMPRESSION: Pacemaker placement. No pneumothorax is identified. Dictated by: Dictated on workstation # [id number] Dict: 09/08/21 1251 Trans: 09/08/21 1528 [facility] [id number] Interpreted by: SHAHIDA FONSECA MD Electronically signed by: SHAHIDA FONSECA MD 09/08/21 1528 A/P: Assessment: Complete heart block - s/p dual chamber PPM implanted on 09-08-21 Coronary artery disease - Cardiac cath December 2008: with a history of drug-eluting stenting of the mid left anterior descending - Cardiac cath January 2009: LULI of the left circumflex obtuse marginal . - Refuses MPI. ICM: - Echocardiogram from August 2013 showed LVEF 45-50%. - Most recent echo of January 2019 showed LVEF 50-55%. Grade 1 diastolic dysfun ction. Mild to MR. Mild AoR. Small amt of pericardial effusion that does not appear to be of hemodynamic signif. RVSP approx 27 mmHg Mild chronic renal insufficiency - stable. Managed by PCP Carotid dz - Carotid u/s of January 2019 showed 60-79% R ICA stenosis. Approx 50% L ICA stenosis. Medication Intolerance: - Intolerance to JOSE inhibitors on account of cough. Hypertension - controlled Hyperlipidemia - being treated with lovastatin. Managed by PCP Abnormal ECG - ECG of 12/20/18 shows NSR with Wenckeback AV block, LBBB, and isolated PVCs Chronic right inguinal hernia - for which he has opted not to have surgery Frequent urination, - chronic, for which he follows with his PCP Chronic hardness of hearing Plan: * S/P dual chamber PPM implanted on 09-08-21 * Diuretics as needed and as tolerated * Monitor labs Clinical Quality Measures AMI/AHF: ASA po Prior to arrival: MANI Gastelum Sep 09, 2021 08:40
--- NOTE | 2021-09-09 08:50 | Progress Note - Cardiology ---
Cardiology SOAP Progress Note Subjective: Sitting up in recliner at the bedside States he has back pain and mild pain at the device insertion site Feels the LE swelling has improved Wants to go home Objective: I&O/Vital Signs 09/09/21 09/09/21 09/09/21 09/09/21 04:00 07:00 08:10 08:55 Temp 37.5 37.0 Pulse 103 87 90 Resp 21 17 B/P (MAP) 143/73 161/83 Pulse Ox 92 94 O2 Delivery Room Air Room Air O2 Flow Rate 4.00 09/09/21 09/09/21 09/09/21 12:20 12:33 13:45 Temp 37.0 Pulse 98 100 Resp 18 B/P (MAP) 136/76 Pulse Ox 94 O2 Delivery Room Air Room Air O2 Flow Rate 0.00 09/08/21 23:59 Intake Total 400 ml Output Total 2800 ml Balance -2400 ml Side: left Device Insertion Site: without hematoma, no signs of inflammation, other (mild swelling) Drainage: No Bruising: mild bruising Constitutional: AAO x 3, well-developed, well-nourished Respiratory: No accessory muscle use; other (good air entry on both sides, diminished at the bases) Cardiovascular: regular rate-rhythm, S1 and S2, systolic murmur (soft CARLOTA at card base) Gastrointestional: No tender; soft; No guarding, No rebound; audible bowel sounds Extremities: swelling (2+ leg edema; mild to mod scrotal swelling on both sides); No clubbing, No cyanosis Neurologic/Psychiatric: oriented x 3, other (moves all limbs equally) Skin: No rash, No ulcerations Results/Procedures: Labs Laboratory Tests 09/09/21 04:42: White Blood Count 8.5, Red Blood Count 4.69, Hemoglobin 15.4, Hematocrit 45, Mean Corpuscular Volume 97, Mean Corpuscular Hemoglobin 33, Mean Corpuscular Hemoglobin Concent 34, Red Cell Distribution Width 14.3, Platelet Count 95L, Mean Platelet Volume 13.1H, Percent Immature Platelet Fraction 6.3, Sodium Level 136, Potassium Level 4.0, Chloride Level 102, Carbon Dioxide Level 22, Anion Gap 12, Blood Urea Nitrogen 31H, Creatinine 1.10, Estimat Glomerular Filtration Rate 63, BUN/Creatinine Ratio 28, Glucose Level 89, Calcium Level 8.4L, Corrected Calcium 9.4, Total Bilirubin 1.9H, Aspartate Amino Transf (AST/SGOT) 53H, Ala nine Aminotransferase (ALT/SGPT) 39, Alkaline Phosphatase 108, Total Protein 5.7L, Albumin 2.8L Microbiology 09/08/21 MRSA Screen - Final, Complete MRSA not isolated A/P: Assessment: Complete heart block - s/p dual chamber PPM implanted on 09-08-21 Coronary artery disease - Cardiac cath December 2008: with a history of drug-eluting stenting of the mid left anterior descending - Cardiac cath January 2009: LULI of the left circumflex obtuse marginal . - Refuses MPI. ICM: - Echocardiogram from August 2013 showed LVEF 45-50%. - Most recent echo of January 2019 showed LVEF 50-55%. Grade 1 diastolic dysfunction. Mild to MR. Mild AoR. Small amt of pericardial effusion that does not appear to be of hemodynamic signif. RVSP approx 27 mmHg Mild chronic renal insufficiency - stable. Managed by PCP Carotid dz - Carotid u/s of January 2019 showed 60-79% R ICA stenosis. Approx 50% L ICA stenosis. Medication Intolerance: - Intolerance to JOSE inhibitors on account of cough. Hypertension - controlled Hyperlipidemia - being treated with lovastatin. Managed by PCP Abnormal ECG - ECG of 12/20/18 shows NSR with Wenckeback AV block, LBBB, and isolated PVCs Chronic right inguinal hernia - for which he has opted not to have surgery Frequent urination, - chronic, for which he follows with his PCP Chronic hardness of hearing Plan: * S/P dual chamber PPM implanted on 09-08-21 * Diuretics as needed and as tolerated * BP not well controlled, episodes of sinus tachycardia - add BB * Monitor labs Clinical Quality Measures AMI/AHF: ASA po Prior to arrival: MANI Gastelum Sep 09, 2021 08:50
[2021-09-09] MEDS: amLODIPine 5 MG (NORVASC) TAB PO SCH (08:51)
[2021-09-09] MEDS: CIPROFLOXACIN 500 MG (CIPRO) TABLET PO SCH ×2 (08:51→20:19)
[2021-09-09] MEDS: ASPIRIN 81 MG CHEW (CHILDREN'S ASA) PO SCH (08:51)
[2021-09-09] MEDS: SIMvastatin 10 MG (ZOCOR) TAB PO SCH (08:52)
[2021-09-09] MEDS: FUROSEMIDE 20 MG (LASIX) TAB PO SCH (08:52)
[2021-09-09] MEDS: NYSTATIN OINTMENT 30 GM TUBE TOP SCH ×2 (08:52→20:19)
[2021-09-09] MEDS ORDERED: VANCOMYCIN INJECTION 1,000 MG in NS (IVPB) 250 ML IV SCH (09:00)
--- NOTE | 2021-09-09 09:14 | Progress Note - Cardiology ---
Cardiology SOAP Progress Note Subjective: No cp or palp or syncope Some gen malaise present Shortness of breath and swelling are better but not resolved Objective: I&O/Vital Signs 09/09/21 09/09/21 09/09/21 09/09/21 00:00 01:01 04:00 07:00 Temp 37.2 37.5 Pulse 95 97 103 87 Resp 20 21 B/P (MAP) 145/63 143/73 Pulse Ox 93 92 O2 Delivery Nasal Cannula O2 Flow Rate 4.00 4.00 09/09/21 08:10 Temp 37.0 Pulse 90 Resp 17 B/P (MAP) 161/83 Pulse Ox 94 O2 Delivery Room Air 09/08/21 23:59 Intake Total 400 ml Output Total 2800 ml Balance -2400 ml Side: left Device Insertion Site: without hematoma, no signs of inflammation, other (mild swelling) Drainage: No Bruising: mild bruising Constitutional: AAO x 3, well-developed, well-nourished Respiratory: No accessory muscle use; other (good air entry on both sides, diminished at the bases) Cardiovascular: regular rate-rhythm, S1 and S2, systolic murmur (soft CARLOTA at card base) Gastrointestional: No tender; soft; No guarding, No rebound; audible bowel sounds Extremities: swelling (2+ leg edema; mild to mod scrotal swelling on both sides); No clubbing, No cyanosis Neurologic/Psychiatric: oriented x 3, other (moves all limbs equally) Skin: No rash, No ulcerations Results/Procedures: Labs Laboratory Tests 09/09/21 04:42: White Blood Count 8.5, Red Blood Count 4.69, Hemoglobin 15.4, Hematocrit 45, Mean Corpuscular Volume 97, Mean Corpuscular Hemoglobin 33, Mean Corpuscular Hemoglobin Concent 34, Red Cell Distribution Width 14.3, Platelet Count 95L, Mean Platelet Volume 13.1H, Percent Immature Platelet Fraction 6.3, Sodium Level 136, Potassium Level 4.0, Chloride Level 102, Carbon Dioxide Level 22, Anion Gap 12, Blood Urea Nitrogen 31H, Creatinine 1.10, Estimat Glomerular Filtration Rate 63, BUN/Creatinine Ratio 28, Glucose Level 89, Calcium Level 8.4L, Corrected Calcium 9.4, Total Bilirubin 1.9H, Aspartate Amino Transf (AST/SGOT) 53H, Alanine Aminotransferase (ALT/SGPT) 39, Alkaline Phosphatase 108, Total Protein 5.7L, Albumin 2.8L Microbiology 09/08/21 MRSA Screen - Final, Complete MRSA not isolated A/P: Assessment: Complete heart block - s/p dual chamber PPM implanted on 09-08-21 Coronary artery disease - Cardiac cath December 2008: with a history of drug-eluting stenting of the mid left anterior descending - Cardiac cath January 2009: LULI of the left circumflex obtuse marginal . - Refuses MPI. ICM: - Echocardiogram from August 2013 showed LVEF 45-50%. - Most recent echo of January 2019 showed LVEF 50-55%. Grade 1 diastolic dysfunction. Mild to MR. Mild AoR. Small amt of pericardial effusion that does not appear to be of hemodynamic signif. RVSP approx 27 mmHg Mild chronic renal insufficiency - stable. Managed by PCP Carotid dz - Carotid u/s of January 2019 showed 60-79% R ICA stenosis. Approx 50% L ICA stenosis. Medication Intolerance: - Intolerance to JOSE inhibitors on account of cough. Hypertension - controlled Hyperlipidemia - being treated with lovastatin. Managed by PCP Abnormal ECG - ECG of 12/20/18 shows NSR with Wenckeback AV block, LBBB, and isolated PVCs Chronic right inguinal hernia - for which he has opted not to have surgery Frequent urination, - chronic, for which he follows with his PCP Chronic hardness of hearing Plan: * S/P dual chamber PPM implanted on 09-08-21 * Diuretics as needed and as tolerated * BP not well controlled, episodes of sinus tachycardia - add BB * Monitor labs Clinical Quality Measures AMI/AHF: ASA po Prior to arrival: VIPUL Rizo MD FACP [facility] CCDS Sep 09, 2021 09:14
[2021-09-09] MEDS ORDERED: meTOproloL SUCCINATE 50 MG (TOPROL XL) TAB PO SCH (09:15)
[2021-09-09] MEDS ORDERED: ASPI-1238 PO (09:24)
[2021-09-09] MEDS ORDERED: ACET-2267 PO (09:25)
[2021-09-09] MEDS: CATHETER FLUSH 10 ML SYR IV SCH ×3 (11:18→20:21)
[2021-09-09] MEDS: VANCOMYCIN 1250 MG/NS 250 ML IVPB IV SCH ×2 (11:18)
--- NOTE | 2021-09-09 11:38 | Progress Note - Hospitalist ---
MERISSA KILPATRICK 09/09/21 1138: Subjective HPI/CC On Admission Date Seen by Provider: Sep 09, 2021 Time Seen by Provider: 08:10 Subjective/Events-last exam Patient had a pacemaker placed yesterday. Is feeling pretty good. Does have some discomfort from the procedure. Patient did have some complaints about right eye pain, wished to have a warm wash cloth. Says he is ready to go home. Patient does have questions about the COVID vaccine. Patient was having his catheter removed as I left the room. Review of Systems Pulmonary: No Dyspnea, No Cough Cardiovascular: No: Chest Pain, Palpitations Gastrointestinal: No: Nausea, Vomiting Objective Exam Vital Signs Vital Signs Date Time Temp Pulse Resp B/P (MAP) Pulse Ox O2 Delivery O2 Flow Rate FiO2 09/09/21 08:55 Room Air 09/09/21 08:10 37.0 90 17 161/83 94 09/09/21 04:00 4.00 Capillary Refill : Less Than 3 Seconds General Appearance: No Apparent Distress, WD/WN Respiratory: Chest Non Tender, Lungs Clear, Normal Breath Sounds, No Accessory Muscle Use, No Respiratory Distress Cardiovascular: Regular Rate, Rhythm, Normal Peripheral Pulses Rectal: Deferred Neurologic/Psychiatric: Alert, Oriented x3, Normal Mood/Affect Results/Procedures Lab Laboratory Tests 09/09/21 04:42 Patient resulted labs reviewed. Assessment/Plan Assessment and Plan Assess & Plan/Chief Complaint Assessment Complete heart block Coronary Artery disease Chronic heart failure Chronic renal insufficiency History of Carotid disease Intertrigo of genitocrural region Hypertension Hyperlipidemia Chronic right inguinal hernia - has previously elected not to repair Plan Pacemaker placed 09/08 by cardiology Lasix (per cardiology) HTN not well controlled with home meds, add a beta-xiomara (per cardiology) Home medications Continue home medications PT/OT Pharmacy to answer questions about COVID vaccination Clinical Quality Measures AMI/AHF: ASA po Prior to arrival: No HUMAIRA CORLEY DO 09/10/21 0545: Subjective Subjective/Events-last exam Pt doing well since pacemaker placed He declined a cardiac catheterization Platelets are 95,000 PT and OT will be ordered Ready for discharge tomorrow Review of Systems General: Fatigue, Malaise Objective Exam General Appearance: No Apparent Distress, WD/WN, Chronically ill Respiratory: Lungs Clear, Normal Breath Sounds Cardiovascular: Regular Rate, Rhythm Neurologic/Psychiatric: Alert, Oriented x3 Assessment/Plan Assessment and Plan Assess & Plan/Chief Complaint Complete heart block management appreciated Discharge home tomorrow Supervisory-Addendum Brief Verification & Attestation Participated in pt care: history, MDM, physical Personally performed: exam, history, MDM, supervision of care Care discussed with: Medical Student Procedures: n/a Results interpretation: Verified all documentation Verification and Attestation of Medical Student E/M Service A medical student performed and documented this service in my presence. I reviewed and verified all information documented by the medical student and made modifications to such information, when appropriate. I personally performed the physical exam and medical decision making. Humaira Corley, Sep 10, 2021,05:44 MERISSA KILPATRICK Sep 09, 2021 11:38 HUMAIRA CORLEY DO Sep 10, 2021 05:45
--- NOTE | 2021-09-09 11:49 | Physical Therapy Evaluation ---
PT Evaluation-General Medical Diagnosis Admission Date Sep 07, 2021 at 15:06 Medical Diagnosis: Shortness of breath with pacemaker placed Onset Date: Sep 08, 2021 Therapy Diagnosis Therapy Diagnosis: Gait deficit, strength deficit Precautions Precautions/Isolations: Fall Prevention, Standard Precautions Referral Physician: Dr. Villalobos Reason for Referral: Evaluation/Treatment Social History Home: Single Level Current Living Status: Children Entry Into Home: Stairs With Railing PT Steps Into Home: 4 Prior Prior Level of Function SCALE: Activities may be completed with or without assistive devices. 1-Hwfenrirdu-sbqiuuy completes the activity by him/herself with no assistance from a helper. 5-Set-up or Clean-up Assistance-helper sets up or cleans up; patient completes activity. Gifford assists only prior to or following the activity. 4-Supervision or Touching Assistance-helper provides verbal cues and/or stephanie dhiraj/steadying and/or contact guard assistance as patient completes activity. Assistance may be provided throughout the activity or intermittently. 3-Partial/Moderate Assistance-helper does LESS THAN HALF the effort. Gifford lifts, holds or supports trunk or limbs, but provides less than half the effort. 2-Substantial/Maximal Assistance-helper does MORE THAN HALF the effort. Gifford lifts or holds trunk or limbs and provides more than half the effort. 2-Wujvtiagd-tqvrrl does ALL the effort. Patient does none of the effort to complete the activity. Or, the assistance of 2 or more helpers is required for the patient to complete the activity. If activity was not attempted, code reason: 7-Patient Refused. 9-Not Applicable-not attempted and the patient did not perform the activity before the current illness, exacerbation or injury. 10-Not Attempted due to Environmental Limitations-(lack of equipment, weather restraints, etc.). 88-Not Attempted due to Medical Conditions or Safety Concerns. Bed Mobility: 6 Transfers (B,C,W/C): 6 Gait: 6 Stairs: 6 Indoor Mobility (Ambulation): Independent Stairs: Independent Prior Devices Use: None PT Evaluation-Current Subjective Patient using BR upon PT arrival, agreeable to treatment. Patient reports no pain at this time, however has moved his left UE sling around his neck/traps and is using his left UE as usual. Patient was educated on the Pacemaker precautions and to keep his Left UE in a sling without movement. Objective Patient Orientation: Person, Place, Time, Situation ROM/Strength ROM Lower Extremities WFLs bilaterally all available planes. Strength Lower Extremities 3+/5 Bilaterally all hip, knee and ankle motions. Sensory Vision: Wears Glasses Hearing: Functional Sensation Right Lower Extremit: Intact Sensation Left Lower Extremity: Intact Transfers Roll Left to Right (QC): 4 Sit to Lying (QC): 4 Lying to Sitting/Side of Bed(Q: 4 Sit to Stand (QC): 4 Chair/Bvo-uo-Othon Xfer(QC): 4 Toilet Transfer (QC): 4 Gait Does the Patient Walk?: Yes Mode of Locomotion: Walk Anticipated Mode of Locomotion: Walk Walk 10 feet (QC): 5 Walk 50 ft with 2 Turns(QC): 5 Walk 150 ft (QC): 5 Distance: 150 Gait Assistive Device: None Balance Sitting Static: Normal Sitting Dynamic: Normal Standing Static: Good Standing Dynamic: Good Assessment/Needs Patient tolerated treatment well. Demonstrates moderate LE strength deficit bilaterally and decline in balance at times while on his feet, however no mejia loss of balance. Patient ambulates 150 feet with no AD, with CGA and verbal cues for safety, progression, balance and conservation of energy. Patient in bed post treatment with all needs met, nursing notified, call light in hand. Rehab Potential: Good Equipment Needs Unsure at this time. 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 Time Frame: Sep 20, 2021 Roll Left & Right (QC): 6 Sit to Lying (QC): 6 Lying-Sitting on Side/Bed(QC): 6 Sit to Stand (QC): 6 Chair/Ubu-ol-Heqyd Xfer(QC): 6 Toilet Transfer (QC): 6 Does the Patient Walk: Yes Walk 10 feet (QC): 6 Walk 50ft with 2 Turns (QC): 6 Walk 150 ft (QC): 6 1 Step (curb) (QC): 6 4 Steps (QC): 6 PT Plan Problem List Problem List: Activity Tolerance, Functional Strength, Safety, Balance, Gait, Transfer, Bed Mobility, ROM, Other Treatment/Plan Treatment Plan: Continue Plan of Care Treatment Plan: Bed Mobility, Education, Functional Activity Aretha, Functional Strength, Group Therapy, Gait, Safety, Therapeutic Exercise, Transfers Treatment Duration: Sep 20, 2021 Frequency: 6 times per week Estimated Hrs Per Day: .25 hour per day Safety Risks/Education Patient Education: Gait Training Teaching Recipient: Patient, Health Care Proxy Teaching Methods: Demonstration, Discussion Response to Teaching: Verbalize Understanding, Return Demonstration Discharge Recommendations Target Placement Home with assistance prn Time/GCodes Time In: 1123 Time Out: 1143 Total Billed Treatment Time: 20 Total Billed Treatment Visit, DENISSE Montes PT Sep 09, 2021 11:49
[2021-09-09] MEDS ORDERED: ACETAMINOPHEN 500 MG TAB (TYLENOL) PO SCH (21:00)
[2021-09-10] MEDS: CATHETER FLUSH 10 ML SYR IV SCH ×2 (05:09→13:34)
[2021-09-10 07:33] LABS: HEMOGLOBIN 16.4 g/dL (13.3-17.7); MEAN CORPUSCULAR HEMOGLOBIN 33 pg (25-34)
[2021-09-10 07:35] LABS: BASOPHILS % (AUTO) 1 % (0-10); EOSINOPHILS # (AUTO) 0.4 10^3/uL (0.0-0.3); EOSINOPHILS % (AUTO) 5 % (0-10); HEMATOCRIT 49 % (40-54); LYMPHOCYTES # (AUTO) 0.4 10^3/uL (1.0-4.0); LYMPHOCYTES % (AUTO) 5 % (12-44); MEAN CORPUSCULAR HGB CONC 33 g/dL (32-36); MEAN CORPUSCULAR VOLUME 97 fL (80-99); MEAN PLATELET VOLUME 12.7 fL (9.0-12.2); MONOCYTES # (AUTO) 0.8 10^3/uL (0.0-1.0); MONOCYTES % (AUTO) 10 % (0-12); NEUTROPHILS # (AUTO) 6.3 10^3/uL (1.8-7.8); NEUTROPHILS % (AUTO) 79 % (42-75); PLATELET COUNT 95 10^3/uL (130-400); WHITE BLOOD COUNT 7.9 10^3/uL (4.3-11.0)
[2021-09-10 07:45] LABS: ALBUMIN 3.1 GM/DL (3.2-4.5); POTASSIUM 3.9 MMOL/L (3.6-5.0)
[2021-09-10 07:46] LABS: CALCIUM 8.6 MG/DL (8.5-10.1)
[2021-09-10 07:48] LABS: TOTAL PROTEIN 6.3 GM/DL (6.4-8.2)
[2021-09-10 07:49] LABS: BILIRUBIN,TOTAL 2.3 MG/DL (0.1-1.0)
[2021-09-10 07:51] LABS: CREATININE SERUM 0.91 MG/DL (0.60-1.30)
[2021-09-10] MEDS ORDERED: FURO20TA4 PO (08:02)
[2021-09-10] MEDS ORDERED: CIPR-225 PO (08:02)
[2021-09-10] MEDS: FUROSEMIDE 20 MG (LASIX) TAB PO SCH (08:19)
[2021-09-10] MEDS: CIPROFLOXACIN 500 MG (CIPRO) TABLET PO SCH (08:19)
[2021-09-10] MEDS: ASPIRIN 81 MG CHEW (CHILDREN'S ASA) PO SCH (08:19)
[2021-09-10] MEDS: SIMvastatin 10 MG (ZOCOR) TAB PO SCH (08:19)
[2021-09-10] MEDS: amLODIPine 5 MG (NORVASC) TAB PO SCH (08:19)
[2021-09-10] MEDS: NYSTATIN OINTMENT 30 GM TUBE TOP SCH (08:19)
[2021-09-10] MEDS ORDERED: FAMOTIDINE 20 MG (PEPCID) TABLET PO SCH (09:00)
[2021-09-10] MEDS ORDERED: ASPIRIN E.C. 81 MG (ECOTRIN) TAB PO SCH (09:00)
[2021-09-10] MEDS ORDERED: meTOproloL SUCCINATE 50 MG (TOPROL XL) TAB PO SCH (09:00)
[2021-09-10] MEDS ORDERED: CIPROFLOXACIN 0.3% (CILOXAN) 2.5 ML BTL OP SCH (10:15)
[2021-09-10] MEDS ORDERED: CIPR2.5D3 OP (10:17)
--- NOTE | 2021-09-10 10:17 | Discharge Summary ---
Discharge Summary Hospital Course Was the Problem List Reviewed?: Yes Problems/Dx: (1) Pacemaker (2) Complete heart block Status: Acute Hospital Course Date of Admission: Sep 07, 2021 at 15:06 Admission Diagnosis : Family Physician/Provider: No,Local Physician Date of Discharge: 09/10/21 Discharge Diagnosis: Third-degree heart block, pacemaker, CAD, declined cardiac cath, right-sided conjunctivitis Hospital Course: Hospital Course: Pt had an uneventful 4 day hospital course when he presented with 3rd degree AV block and CHF. He met criteria for pacemaker placement and that was done by Dr. Mejia. Right eye conjunctivitis required Cipro eye drops after wound swab taken. Pt was deemed stable, will have close follow up and will monitor closely. Labs and Pending Lab Test: Laboratory Tests 09/10/21 07:09: White Blood Count 7.9, Red Blood Count 5.05, Hemoglobin 16.4, Hematocrit 49, Mean Corpuscular Volume 97, Mean Corpuscular Hemoglobin 33, Mean Corpuscular Hemoglobin Concent 33, Red Cell Distribution Width 14.2, Platelet Count 95L, Mean Platelet Volume 12.7H, Immature Granulocyte % (Auto) 0, Neutrophils (%) (Auto) 79H, Lymphocytes (%) (Auto) 5L, Monocytes (%) (Auto) 10, Eosinophils (%) (Auto) 5, Basophils (%) (Auto) 1, Neutrophils # (Auto) 6.3, Lymphocytes # (Auto) 0.4L, Monocytes # (Auto) 0.8, Eosinophils # (Auto) 0.4H, Basophils # (Auto) 0.0, Immature Granulocyte # (Auto) 0.0, Percent Immature Platelet Fraction 6.8, Sod ium Level 137, Potassium Level 3.9, Chloride Level 101, Carbon Dioxide Level 24, Anion Gap 12, Blood Urea Nitrogen 29H, Creatinine 0.91, Estimat Glomerular Filtration Rate 79, BUN/Creatinine Ratio 32, Glucose Level 91, Calcium Level 8. 6, Corrected Calcium 9.3, Total Bilirubin 2.3H, Aspartate Amino Transf (AST/SGOT) 49H, Alanine Aminotransferase (ALT/SGPT) 40, Alkaline Phosphatase 126, Total Protein 6.3L, Albumin 3.1L Microbiology 09/08/21 MRSA Screen - Final, Complete MRSA not isolated Home Meds Active Furosemide 20 Mg Tablet 20 Mg PO DAILY Cipro (Ciprofloxacin HCl) 500 Mg Tablet 500 Mg PO BID 5 Days Reported Tylenol Extra Strength (Acetaminophen) 500 Mg Tablet 1,000 Mg PO HS Aspirin EC (Aspirin) 81 Mg Tablet.dr 81 Mg PO DAILY Acid Manager [employer] (FAMOTIDINE) (Famotidine) 20 Mg Tablet 20 Mg PO DAILY Losartan Potassium 100 Mg Tablet 100 Mg PO 1800 BEFORE DINNER Metoprolol Succinate 100 Mg Tab.er.24h 100 Mg PO DAILY Lovastatin 20 Mg Tablet 20 Mg PO HS Assessment/Pt Instructions PCP in 2 weeks Discharge Planning: <30 minutes discharge planning Discharge Instructions Discharge Diet: No Restrictions Discharge Physical Examination Vital Signs Vital Signs Date Time Temp Pulse Resp B/P (MAP) Pulse Ox O2 Delivery O2 Flow Rate FiO2 09/10/21 08:24 Room Air 09/10/21 07:57 36.8 104 18 119/112 09/10/21 07:47 99 09/09/21 13:45 0.00 General Appearance: No Apparent Distress, WD/WN, Chronically ill Allergies: Coded Allergies: Penicillins (Unverified Allergy, Mild, 12/31/08) Sulfa (Sulfonamide Antibiotics) (Verified Allergy, Unknown, 12/31/08) Discharge Summary Date of Admission Sep 07, 2021 at 15:06 Date of Discharge Discharge Date: Sep 10, 2021 Discharge Diagnosis Complete heart block management appreciated Discharge home tomorrow Clinical Quality Measures AMI/AHF: ASA po Prior to arrival: WILY Villa DO Sep 10, 2021 10:17
--- NOTE | 2021-09-10 10:22 | Progress Note - Cardiology ---
Cardiology SOAP Progress Note Subjective: Sitting up in the recliner Wants to go home Feels well No c/o CP, device insertion site pain Feels LE swelling is greatly improved Objective: I&O/Vital Signs 09/10/21 09/10/21 09/10/21 09/10/21 00:00 01:00 03:33 04:49 Temp 36.7 36.8 Pulse 89 102 98 Resp 17 15 B/P (MAP) 152/82 133/89 Pulse Ox 94 92 O2 Delivery Room Air Room Air Room Air 09/10/21 09/10/21 09/10/21 09/10/21 07:00 07:47 07:57 08:24 Temp 36.8 Pulse 105 85 104 Resp 17 18 B/P (MAP) 153/91 119/112 Pulse Ox 99 O2 Delivery Room Air Room Air Room Air 09/10/21 00:00 Intake Total 1200 ml Output Total 400 ml Balance 800 ml Side: left Device Insertion Site: without hematoma, no signs of inflammation, other (mild swelling) Drainage: No Bruising: mild bruising Constitutional: AAO x 3, well-developed, well-nourished Respiratory: No accessory muscle use; other (good air entry on both sides, diminished at the bases) Cardiovascular: regular rate-rhythm, S1 and S2, systolic murmur (soft [place] at card base) Gastrointestional: No tender; soft; No guarding, No rebound; audible bowel sounds Extremities: swelling (LE swelling improved - mod bilat); No clubbing, No cyanosis Neurologic/Psychiatric: oriented x 3, other (moves all limbs equally) Skin: No rash, No ulcerations Results/Procedures: Labs Laboratory Tests 09/10/21 07:09: White Blood Count 7.9, Red Blood Count 5.05, Hemoglobin 16.4, Hematocrit 49, Mean Corpuscular Volume 97, Mean Corpuscular Hemoglobin 33, Mean Corpuscular Hemoglobin Concent 33, Red Cell Distribution Width 14.2, Platelet Count 95L, Mean Platelet Volume 12.7H, Immature Granulocyte % (Auto) 0, Neutrophils (%) (Auto) 79H, Lymphocytes (%) (Auto) 5L, Monocytes (%) (Auto) 10, Eosinophils (%) (Auto) 5, Basophils (%) (Auto) 1, Neutrophils # (Auto) 6.3, Lymphocytes # (Auto) 0.4L, Monocytes # (Auto) 0.8, Eosinophils # (Auto) 0.4H, Basophils # (Auto) 0.0, Immature Granulocyte # (Auto) 0.0, Percent Immature Platelet Fraction 6.8, Sodium Level 137, Potassium Level 3.9, Chloride Level 101, Carbon Dioxide Level 24, Anion Gap 12, Blood Urea Nitrogen 29H, Creatinine 0.91, Estimat Glomerular Filtration Rate 79, BUN/Creatinine Ratio 32, Glucose Level 91, Calcium Level 8.6, Corrected Calcium 9.3, Total Bilirubin 2.3H, Aspartate Amino Transf (AST/SGOT) 49H, Alanine Aminotransferase (ALT/SGPT) 40, Alkaline Phosphatase 126, Total Protein 6.3L, Albumin 3.1L Microbiology 09/08/21 MRSA Screen - Final, Complete MRSA not isolated Laboratory Tests 09/09/21 04:42 09/10/21 07:09 A/P: Assessment: Complete heart block - s/p dual chamber PPM implanted on 09-08-21 Coronary artery disease - Cardiac cath December 2008: with a history of drug-eluting stenting of the mid left anterior descending - Cardiac cath January 2009: LULI of the left circumflex obtuse marginal . - Refuses MPI. ICM: - Echocardiogram from August 2013 showed LVEF 45-50%. - Most recent echo of January 2019 showed LVEF 50-55%. Grade 1 diastolic dysfunction. Mild to MR. Mild AoR. Small amt of pericardial effusion that does not appear to be of hemodynamic signif. RVSP approx 27 mmHg Mild chronic renal insufficiency - stable. Managed by PCP Carotid dz - Carotid u/s of January 2019 showed 60-79% R ICA stenosis. Approx 50% L ICA stenosis. Medication Intolerance: - Intolerance to JOSE inhibitors on account of cough. Hypertension - controlled Hyperlipidemia - being treated with lovastatin. Managed by PCP Abnormal ECG - ECG of 12/20/18 shows NSR with Wenckeback AV block, LBBB, and isolated PVCs Chronic right inguinal hernia - for which he has opted not to have surgery Frequent urination, - chronic, for which he follows with his PCP Chronic hardness of hearing Plan: * S/P dual chamber PPM implanted on 09-08-21 * Continue current medication regimen including antihypertensive regimen and diuretics * Advise out pt f/u for dressing change at our office tomorrow * Advise out pt f/u in 4 weeks * OK to d/c home from cardiac stand point Clinical Quality Measures AMI/AHF: ASA po Prior to arrival: MANI Gastelum Sep 10, 2021 10:22
[2021-09-10] MEDS ORDERED: RELABEL FOR HOME USE MC SCH (10:30)
--- NOTE | 2021-09-10 10:36 | Physical Therapy Daily Note ---
PT Daily Note-Current Subjective Patient lying supine in bed upon PT arrival, reports his left shoulder/arm is hurting, rates it at 5/10. Mental Status Patient Orientation: Person, Place, Time, Situation Transfers SCALE: Activities may be completed with or without assistive devices. 8-Uhrsqpfxnc-kyhcuix completes the activity by him/herself with no assistance from a helper. 5-Set-up or Clean-up Assistance-helper sets up or cleans up; patient completes activity. [place] assists only prior to or following the activity. 4-Supervision or Touching Assistance-helper provides verbal cues and/or touching/steadying and/or contact guard assistance as patient completes activity. Assistance may be provided throughout the activity or intermittently. 3-Partial/Moderate Assistance-helper does LESS THAN HALF the effort. [place] lifts, holds or supports trunk or limbs, but provides less than half the effort. 2-Substantial/Maximal Assistance-helper does MORE THAN HALF the effort. [place] lifts or holds trunk or limbs and provides more than half the effort. 6-Wbqmfknjq-alpdmw does ALL the effort. Patient does none of the effort to complete the activity. Or, the assistance of 2 or more helpers is required for the patient to complete the activity. If activity was not attempted, code reason: 7-Patient Refused. 9-Not Applicable-not attempted and the patient did not perform the activity before the current illness, exacerbation or injury. 10-Not Attempted due to Environmental Limitations-(lack of equipment, weather restraints, etc.). 88-Not Attempted due to Medical Conditions or Safety Concerns. Roll Left & Right (QC): 4 Sit to Lying (QC): 4 Lying to Sitting/Side of Bed(Q: 4 Sit to Stand (QC): 4 Chair/Yoq-jw-Haijn Xfer(QC): 4 Toilet Transfer (QC): 4 Gait Training Does the Patient Walk?: Yes Distance: 200 Walk 10 feet (QC): 5 Walk 50 ft with 2 Turns(QC): 5 Walk 150 ft (QC): 5 Gait Assistive Device: None Exercises Supine Ex: Ankle pumps, Quad Set, Glut sets, Heel Slides, Short Arc Quads, Straight leg raise, Hip abd/add Supine Reps: 20 Assessment Current Status: Good Progress Patient tolerated treatment well except for SLR bilaterally. Reports since he fell a few weeks ago his thighs/hips have hurt and the SLR seems to aggravate that pain. Patient performs LE therapeutic exercise as listed above. Patient performs all observed bed mobility and transfers with SBA. He ambulates 200 feet with no AD, with SBA and verbal cues for posture, not using the left UE and conservation of energy. 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 Time Frame: Sep 20, 2021 Roll Left & Right (QC): 6 Sit to Lying (QC): 6 Lying-Sitting on Side/Bed(QC): 6 Sit to Stand (QC): 6 Chair/Kom-hs-Qeghm Xfer(QC): 6 Toilet Transfer (QC): 6 Does the Patient Walk: Yes Walk 10 feet (QC): 6 Walk 50ft with 2 Turns (QC): 6 Walk 150 ft (QC): 6 1 Step (curb) (QC): 6 4 Steps (QC): 6 PT Plan Treatment/Plan Treatment Plan: Continue Plan of Care Treatment Plan: Bed Mobility, Education, Functional Activity Aretha, Functional Strength, Group Therapy, Gait, Safety, Therapeutic Exercise, Transfers Treatment Duration: Sep 20, 2021 Frequency: 6 times per week Estimated Hrs Per Day: .25 hour per day Safety Risks/Education Patient Education: Gait Training Teaching Recipient: Patient Teaching Methods: Demonstration, Discussion Response to Teaching: Verbalize Understanding, Return Demonstration Time/GCodes Time In: 920 Time Out: 950 Total Billed Treatment Time: 30 Total Billed Treatment Visit, Azael Randall JOHN A PT Sep 10, 2021 10:36
[2021-09-10] MEDS: VANCOMYCIN 1250 MG/NS 250 ML IVPB IV SCH ×2 (11:44)
--- NOTE | 2021-09-10 11:44 | Progress Note ---
MERISSA KILPATRICK 09/10/21 1144: Progress Note Patient is an 85 year old male who presented to [facility] on 09/08 with complaints of SOB that had persisted for approximately one month. Patient has a history of coronary artery disease, carotid disease, congestive heart failure, chronic renal insufficiency, hypertension, hyperlipidemia, chronic right inguinal hernia. Patient was found to be COVID (-). Patient came from the [facility] where patient was seen and told to go to [facility] straight away. Patient was seen by Dr. Mejia, who gave a diagnosis of a complete heart block and recommended dual chamber pacemaker placement. This was placed on 09/08. Patient also found to have intertrigo of sacrocrural region, placed on topical nystatin. On 09/09 patient was placed on diuretics as needed and a beta-xiomara was added to his hypertension medication regime for episodes of hypertension and tachycardia. Patient was ready to go home, but the decision was made to wait one more day. On 09/10 patient was cleared for discharge by cardiology. Patient was having irritation and conjunctiva of right eye with discharge. Will be sent home on [place] for this. Patient has instructions to return to Dr. Izaguirre office tomorrow for wound dressing change. Patient is also to follow up with Dr. Mejia in approximately four weeks. HUMAIRA CORLEY DO 09/11/21 0614: Supervisory-Addendum Brief Verification & Attestation Participated in pt care: history, MDM, physical Personally performed: exam, history, MDM, supervision of care Care discussed with: Medical Student Procedures: n/a Results interpretation: Verified all documentation Verification and Attestation of Medical Student E/M Service A medical student performed and documented this service in my presence. I reviewed and verified all information documented by the medical student and made modifications to such information, when appropriate. I personally performed the physical exam and medical decision making. Humaira Corley Sep 11, 2021,06:14 MERISSA KILPATRICK Sep 10, 2021 11:44 HUMAIRA CORLEY DO Sep 11, 2021 06:14
[2021-09-10] MEDS ORDERED: OFLOXACIN 0.3% OPHTH SOLN 5 ML OU SCH (11:45)
--- NOTE | 2021-09-10 13:12 | Physician Query Clarification ---
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 Grade 1 diastolic dysfunction." Treatment Multiple doses of IV Lasix, Cardiology consult, PPM insertion Question: Can you further specify CHF, "acute", (Per Dr. Taty Sin on the H and P) and Chronic Heart failure (per 09/09/2021 Progress note) per the clinical indicators above? Please document your response in the Progress Notes or Discharge Summary. 1. Acute on Chronic Diastolic Heart failure, present on admission 2. Other, with explanation of clinical findings 3. Clinically undetermined, no explanation for clinical findings Please clarify and document your clinical opinion in the Progress Notes and Discharge Summary including the definitive and/or presumptive diagnosis, (suspected or probable), related to the above clinical findings. Please include clinical findings supporting your diagnosis. In responding to this query, please exercise your independent professional judgment. The purpose of this communication is to more accurately reflect the complexity of your patients condition. The fact that a question is asked does not imply that any particular answer is desired or expected. Please remember a lack of response to the above will prompt a phone page by CDI/coding staff. Thank you for timely response to this clarification. Meg Dolan MSN, RN Clinical Stenographer [employer] [phone] PHYSICIAN RESPONSE: Based on the clinical findings in the record, please respond to the query above on this document as an addendum. Physician Response: Physician Response 1 If you have questions please contact: Radiological Defense Officer: Ext: Thank you for your time and cooperation. Clinical Stenographer [employer]/Radiological Defense Officer This is a permanent part of the medical record MEG DOLAN Sep 10, 2021 13:11 WILY CORLEY DO Sep 10, 2021 19:29
[2021-09-10] MEDS ORDERED: LOSARTAN 100 MG (COZAAR) TABLET PO SCH (17:00)
[2021-09-11] MEDS ORDERED: TROUGH ORDER-PHARMACY XX NR (10:00)
== END 2021-09-10 14:00 | disposition home or self-care (01) | DRG 242 ==
LOC: EDUNIT# 14:18 → ER 14:21 → CSD 15:06
PROVIDERS: ADMIT Family Medicine; ATTEND Internal Medicine
PROC: 0JH606Z Insertion of Pacemaker, Dual Chamber into Chest Subcutaneous Tissue and Fascia, Open Approach (ICD-10-PCS; principal; 2021-09-08)
PROC: 02H63JZ Insertion of Pacemaker Lead into Right Atrium, Percutaneous Approach (ICD-10-PCS; 2021-09-08)
PROC: 02HK3JZ Insertion of Pacemaker Lead into Right Ventricle, Percutaneous Approach (ICD-10-PCS; 2021-09-08)
DX: I44.2 Atrioventricular block, complete (principal); I50.33 Acute on chronic diastolic (congestive) heart failure; I13.0 Hypertensive heart and chronic kidney disease with heart failure and stage 1 through stage 4 chronic kidney disease, or unspecified chronic kidney disease; B37.49 Other urogenital candidiasis; N18.9 Chronic kidney disease, unspecified; I25.10 Atherosclerotic heart disease of native coronary artery without angina pectoris; I25.5 Ischemic cardiomyopathy; H10.9 Unspecified conjunctivitis; E78.5 Hyperlipidemia, unspecified; I44.1 Atrioventricular block, second degree; I44.7 Left bundle-branch block, unspecified; I49.3 Ventricular premature depolarization; Z66 Do not resuscitate; I65.23 Occlusion and stenosis of bilateral carotid arteries; K40.90 Unilateral inguinal hernia, without obstruction or gangrene, not specified as recurrent; R35.0 Frequency of micturition; Z95.5 Presence of coronary angioplasty implant and graft; Z87.891 Personal history of nicotine dependence; Z88.0 Allergy status to penicillin; Z88.2 Allergy status to sulfonamides
CPT/HCPCS: 33208; 36415; 51702; 71045; 71046; 80048; 80053; 80061; 80076; 82947; 83735; 83874; 83880; 84484; 85007; 85025; 85027; 85610; 85730; 87070; 87081; 93005; 93041

== ENCOUNTER 2023-04-17 12:40 | Observation (INO) | payer MEDICARE ==
[~2023-04-17] VITALS: Ht 175 cm; Wt 68.8 kg
[~2023-04-17 12:40] MED LIST changes: +ACET-2267 PO; +ASPI-1238 PO; +ASPI-999 PO; +CIPR-225 PO; +CIPR2.5D18 OP; +FAMO20TA3 PO; +FURO20TA4 PO; +LOSA100T58 PO; +LOVA20TA2 PO; +MTP100TCR PO
--- NOTE | 2023-04-17 13:13 | ED GI ---
General Chief Complaint: Abdominal/GI Problems Stated Complaint: DIARRHEA | SPITTING UP BLOOD Nursing Triage Note: DIARRHEA X36 HOURS. SPITTING UP DARK BROWN BLOOD STARTING YESTERDAY. Source of Information: Patient Exam Limitations: No Limitations History of Present Illness Date Seen by Provider: Apr 17, 2023 Time Seen by Provider: 13:12 Initial Comments Patient is an 87-year-old male who presents to the emergency room with a chief complaint of left lower quadrant abdominal pain, diarrhea since early yesterday morning and drooling what looks like coffee-ground emesis type material today. states that all the symptoms started yesterday. No recent travel. They have city water. No recent antibiotic usage. He has a history of hypertension and takes daily baby aspirin. He has had no prior abdominal surgeries. states he has never had occult colonoscopy that she is aware of. They have been 67 years. He denies any fevers or chills. He thought that the coffee- ground type material in his mouth was due to possibly having swallowed some broken teeth back in January. No intraoral injury is observed. He is not short of breath, not having any chest pain. No lower extremity swelling. states that he has been very weak and not eating or drinking the last 36 hours. She denies any bright red blood in the stool. He takes acetaminophen for pain. No NSAIDS. No recent pepto. 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 Has had "heartburn" type symptoms. He did take 2 immodium tablets yesterday. Timing/Duration: 1-2 Days Severity/Quality: Moderate ("5") Allergies and Home Medications Allergies Coded Allergies: Penicillins (Unverified Allergy, Mild, 12/31/08) Patient Home Medication List Home Medication List Reviewed: Yes Acetaminophen (Tylenol Extra Strength) 500 Mg Tablet, 1,000 MG PO HS, (Reported) Entered as Reported by: JOSE ANTONIO KING on 09/09/21924 Last Action: Continued Aspirin (Aspirin EC) 81 Mg Tablet.dr, 81 MG PO DAILY, (Reported) Entered as Reported by: JOSE ANTONIO KING on 09/09/21923 Last Action: Held Famotidine (Acid Plate And Frame Filter Operator (FAMOTIDINE)) 20 Mg Tablet, 20 MG PO DAILY, (Reported) Entered as Reported by: VITO GARCES RN on 09/07/211804 Last Action: Continued Furosemide (Furosemide) 20 Mg Tablet, 20 MG PO DAILY Prescribed by: MANI SARABIA on 09/10/21 0802 Last Action: Held Losartan Potassium (Losartan Potassium) 100 Mg Tablet, 100 MG PO 1800 BEFORE DINNER, (Reported) Entered as Reported by: VITO GARCES RN on 09/07/211804 Last Action: Held Lovastatin (Lovastatin) 20 Mg Tablet, 20 MG PO HS, (Reported) Entered as Reported by: VITO GARCES RN on 09/07/211804 Last Action: Converted Metoprolol Succinate (Metoprolol Succinate) 100 Mg Tab.er.24h, 100 MG PO DAILY, (Reported) Entered as Reported by: VITO GARCES RN on 09/07/211804 Last Action: Continued Pantoprazole Sodium (Protonix) 40 Mg Tablet.dr, 40 MG PO BID Prescribed by: WILY CORLEY on 04/18/231312 Rivaroxaban (Xarelto) 15 Mg Tablet, 15 MG PO DAILY, (Reported) Entered as Reported by: ANA LUNA on 04/17/231814 Last Action: Held Sucralfate (Carafate) 1 Gram Tablet, 1 GM PO ACHS Prescribed by: WILY CORLEY on 04/18/23 131 Review of Systems Review of Systems Constitutional: weakness EENTM: No Symptoms Reported Respiratory: No Symptoms Reported Cardiovascular: No Symptoms Reported Gastrointestinal: Abdominal Pain, Diarrhea, Poor Appetite Genitourinary: No Symptoms Reported Musculoskeletal: no symptoms reported Skin: no symptoms reported Psychiatric/Neurological: No Symptoms Reported All Other Systems Reviewed Negative Unless Noted: Yes Past Iychknj-Bkjsyp-Pcyrrj Hx Patient Social History Tobacco Use?: Yes Tobacco type used: Cigarettes Smoking Status: Former Smoker Substance use?: No Alcohol Use?: No Immunizations Up To Date First/Initial COVID19 Vaccinat: None Second COVID19 Vaccination Cabrera: None Third COVID19 Vaccination Date: None Past Medical History Reproductive Disorders: No Physical Exam Vital Signs Vital Signs - First Documented 04/17/23 12:56 Temp 36.0 Pulse 97 Resp 16 B/P (MAP) 151/72 (98) Pulse Ox 97 O2 Delivery Room Air Capillary Refill : Less Than 3 Seconds Height/Weight/BMI Height: '" Weight: lbs. oz. kg; 22.00 BMI Method: General Appearance: WD/WN, no apparent distress HEENT: PERRL/EOMI Neck: full range of motion, normal inspection Respiratory: lungs clear, normal breath sounds, no respiratory distress, no accessory muscle use, other (pacemaker left chest ) Cardiovascular: regular rate, rhythm Gastrointestinal: soft, abnormal bowel sounds (hypoactive BS); No distended, No guarding; other (mild tenderness Left Lower quadrant; right inguinal hernia - soft and reducible) Extremities: normal range of motion, non-tender, normal inspection Neurologic/Psychiatric: alert, normal mood/affect, oriented x 3, other (hard of hearing) Skin: normal color, warm/dry Progress/Results/Core Measures Results/Orders Lab Results Laboratory Tests Test 04/17/23 13:03 04/17/23 15:07 Range/Units White Blood Count 13.0 H 4.3-11.0 10^3/uL Red Blood Count 4.83 4.30-5.52 10^6/uL Hemoglobin 15.5 13.3-17.7 g/dL Hematocrit 47 40-54 % Mean Corpuscular Volume 96 80-99 fL Mean Corpuscular Hemoglobin 32 25-34 pg Mean Corpuscular Hemoglobin Concent 33 32-36 g/dL Red Cell Distribution Width 12.9 10.0-14.5 % Platelet Count 160 130-400 10^3/uL Mean Platelet Volume 11.8 9.0-12.2 fL Immature Granulocyte % (Auto) 0 % Neutrophils (%) (Auto) 78 H 42-75 % Lymphocytes (%) (Auto) 8 L 12-44 % Monocytes (%) (Auto) 13 H 0-12 % Eosinophils (%) (Auto) 1 0-10 % Basophils (%) (Auto) 0 0-10 % Neutrophils # (Auto) 10.2 H 1.8-7.8 10^3/uL Lymphocytes # (Auto) 1.0 1.0-4.0 10^3/uL Monocytes # (Auto) 1.6 H 0.0-1.0 10^3/uL Eosinophils # (Auto) 0.1 0.0-0.3 10^3/uL Basophils # (Auto) 0.1 0.0-0.1 10^3/uL Immature Granulocyte # (Auto) 0.0 0.0-0.1 10^3/uL Neutrophils % (Manual) 74 % Lymphocytes % (Manual) 12 % Monocytes % (Manual) 10 % Eosinophils % (Manual) 1 % Basophils % (Manual) 0 % Band Neutrophils 3 % Blood Morphology Comment NORMAL Sodium Level 137 135-145 MMOL/L Potassium Level 3.9 3.6-5.0 MMOL/L Chloride Level 105 98-107 MMOL/L Carbon Dioxide Level 21 21-32 MMOL/L Anion Gap 11 5-14 MMOL/L Blood Urea Nitrogen 57 H 7-18 MG/DL Creatinine 1.38 H 0.60-1.30 MG/DL Estimat Glomerular Filtration Rate 49 BUN/Creatinine Ratio 41 Glucose Level 108 H 70-105 MG/DL Calcium Level 9.8 8.5-10.1 MG/DL Corrected Calcium 9.6 8.5-10.1 MG/DL Total Bilirubin 1.2 H 0.1-1.0 MG/DL Aspartate Amino Transf (AST/SGOT) 24 5-34 U/L Alanine Aminotransferase (ALT/SGPT) 18 0-55 U/L Alkaline Phosphatase 67 40-136 U/L Total Protein 7.6 6.4-8.2 GM/DL Albumin 4.3 3.2-4.5 GM/DL Urine Color YELLOW Urine Clarity SL CLOUDY Urine pH 6.0 5-9 Urine Specific [place] 1.025 H 1.016-1.022 Urine Protein 2+ H NEGATIVE Urine Glucose (UA) NEGATIVE NEGATIVE Urine Ketones NEGATIVE NEGATIVE Urine Nitrite NEGATIVE NEGATIVE Urine Bilirubin NEGATIVE NEGATIVE Urine Urobilinogen 0.2 < = 1.0 MG/DL Urine Leukocyte Esterase NEGATIVE NEGATIVE Urine RBC (Auto) 1+ H NEGATIVE Urine RBC 0-2 /HPF Urine WBC NONE /HPF Urine Squamous Epithelial Cells RARE /HPF Urine Crystals NONE /LPF Urine Bacteria NEGATIVE /HPF Urine Casts PRESENT /LPF Urine Hyaline Casts 2-5 H /LPF Urine Mucus NEGATIVE /LPF Urine Culture Indicated NO My Orders Orders - KEITH CASILLAS MD Ed Iv/Invasive Line Start (04/17/23 13:32) Cbc With Automated Diff (04/17/23 13:32) Comprehensive Metabolic Panel (04/17/23 13:32) Ua Culture If Indicated (04/17/23 13:32) Manual Differential (04/17/23 13:03) Ct Abdomen/Pelvis Wo (04/17/23 13:57) Pantoprazole Injection (Protonix Injecti (04/17/23 14:00) Ns Iv 1000 Ml (Sodium Chloride 0.9%) (04/17/23 13:57) Medications Given in ED Current Medications Medications Dose Ordered Sig/Sarah Route Start Time Stop Time Status Last Admin Dose Admin Pantoprazole 40 mg ONCE ONCE IV 04/17/23 14:00 04/17/23 14:01 DC 04/17/23 14:09 40 MG Vital Signs/I&O 04/17/23 04/17/23 12:56 14:10 Temp 36.0 Pulse 97 84 Resp 16 16 B/P (MAP) 151/72 (98) 141/81 (101) Pulse Ox 97 98 O2 Delivery Room Air Room Air Blood Pressure Mean: 98 Progress Progress Note : Time: 15:34 Progress Note Patient seen and evaluated by me. Elderly male in no acute distress. Evaluation today include CBC, Chem-12, coagulation profile, urinalysis as well as CT of the abdomen and pelvis with out IV contrast. Pertinent physical exam findings thin elderly male with stable vital signs. Heart is regular, lungs are clear. He has a soft mildly tender abdomen in the left lower quadrant. He has a large soft reducible right inguinal hernia. No focal neurologic deficits. Differential diagnosis based on history and physical exam, partial small bowel obstruction, ulcer/bleeding Labs independently reviewed and interpreted by me. His CBC shows a mildly elevated white blood cell count at 13,000 with a hemoglobin of 15.5 hematocrit 11 platelet count of 160. 78% segmented neutrophils. Chem-12 remarkable only for increased BUN at 50 creatinine at 1.38. Coags are within normal limits, urinalysis is negative. CT scan abdomen and pelvis noncontrast read by the radiologist reveals dilated and distended esophagus that is fluid-filled as well as the right-sided inguinal hernia with both proximal and distal duct bowel loops. Patient is treated in the emergency department with 40mg Protonix IV and a liter of normal saline. Case was discussed with Dr. Corley, hospitalist on- call for admission with consultation to Dr Zuñiga for the hematemesis. Diagnostic Imaging Diagonstic Imaging: Xray Comments [facility] [place], [place] NAME: OMID SAUER [facility] REC#: [id number] PT STATUS: REG ER : 1935 PHYSICIAN: KEITH CASILLAS MD ADMIT DATE: 04/17/23/ER Draft Date of Exam:04/17/23 CT ABDOMEN/PELVIS WO EXAMINATION: CT abdomen and pelvis without contrast. TECHNIQUE: Multiple contiguous axial images were obtained through the abdomen and pelvis without the use of intravenous contrast. All CT scans use one or more of the following dose optimizing techniques: automated exposure control, MA and/or KvP adjustment based on patient size and exam type or iterative reconstruction. HISTORY: Left lower quadrant pain. COMPARISON: None available. FINDINGS: Limited views of the lower thorax show distention of the esophagus with fluid. A pacemaker is present. There is a cyst in the liver. No suspicious liver lesion. There is no biliary ductal dilation. Gallbladder is normal. Pancreas is normal. Spleen is normal. Adrenal glands are normal. There are cysts in both kidneys. No suspicious renal lesion. There is no hydronephrosis. Urinary bladder is normal. There is a right inguinal hernia containing a loop of small bowel. There is moderate dilation of the bowel caldwell upstream and downstream from the hernia but the bowel is narrowed as it enters and exits the hernia sac. No free fluid or air. No abdominal or pelvic lymphadenopathy. Abdominal aorta measures 3.2 x 2.6 cm. There is no suspicious osseus lesion. IMPRESSION: 1. Bowel loops are moderately dilated. There is a right inguinal hernia containing small bowel with narrowing of the bowel as it enters and exits the hernia sac. Both upstream and downstream bowel is dilated. The hernia may be incidental or may be representing a partial obstruction. 2. The esophagus is distended with fluid. Dictated on workstation # [id number] Dict: 04/17/23 1447 Trans: 04/17/23 1501 [facility] [id number] Interpreted by: DENISSE LING MD Electronically signed by: Departure Communication (Admissions) Time/Spoke to Admitting Phy: 15:[address] Corley [facility] hospitalist - admit obs Time/Spoke to Consulting Phy: 15:[address] Zuñiga Impression Primary Impression: Abdominal pain Qualified Codes: R10.32 - Left lower quadrant pain Additional Impressions: Diarrhea in adult patient Dehydration Disposition: ADMITTED INPATIENT Condition: Stable Admissions Decision to Admit Reason: Admit from ER (General) Decision to Admit/Date: Apr 17, 2023 Time/Decision to Admit Time: 15:32 Departure-Patient Inst. Referrals: [facility] (PCP/Family) Primary Care Physician Scripts Sucralfate (Carafate) 1 Gram Tablet 1 GM PO ACHS, #120 TAB Prov: WILY CORLEY DO 04/18/23 Pantoprazole Sodium (Protonix) 40 Mg Tablet.dr 40 MG PO BID, #60 TAB Prov: WILY CORLEY DO 04/18/23 KEITH CASILLAS MD Apr 17, 2023 13:13
[2023-04-17 13:37] LABS: BASOPHILS # (AUTO) 0.1 10^3/uL (0.0-0.1); BASOPHILS % (AUTO) 0 % (0-10); EOSINOPHILS # (AUTO) 0.1 10^3/uL (0.0-0.3); EOSINOPHILS % (AUTO) 1 % (0-10); HEMATOCRIT 47 % (40-54); HEMOGLOBIN 15.5 g/dL (13.3-17.7); LYMPHOCYTES % (AUTO) 8 % (12-44); MEAN CORPUSCULAR HEMOGLOBIN 32 pg (25-34); MEAN CORPUSCULAR HGB CONC 33 g/dL (32-36); MEAN CORPUSCULAR VOLUME 96 fL (80-99); MEAN PLATELET VOLUME 11.8 fL (9.0-12.2); MONOCYTES # (AUTO) 1.6 10^3/uL (0.0-1.0); MONOCYTES % (AUTO) 13 % (0-12); NEUTROPHILS # (AUTO) 10.2 10^3/uL (1.8-7.8); NEUTROPHILS % (AUTO) 78 % (42-75); PLATELET COUNT 160 10^3/uL (130-400)
[2023-04-17 13:39] LABS: ALBUMIN 4.3 GM/DL (3.2-4.5)
[2023-04-17 13:40] LABS: POTASSIUM 3.9 MMOL/L (3.6-5.0)
[2023-04-17 13:41] LABS: CALCIUM 9.8 MG/DL (8.5-10.1)
[2023-04-17 13:42] LABS: TOTAL PROTEIN 7.6 GM/DL (6.4-8.2)
[2023-04-17 13:44] LABS: BILIRUBIN,TOTAL 1.2 MG/DL (0.1-1.0)
[2023-04-17 13:46] LABS: CREATININE SERUM 1.38 MG/DL (0.60-1.30)
[2023-04-17] MEDS ORDERED: NS IV 1000 ML 1,000 ML IV STA (13:57)
[2023-04-17 13:58] LABS: BAND NEUTROPHILS 3 %; BASOPHILS % (MANUAL) 0 %; EOSINOPHILS % (MANUAL) 1 %; LYMPHOCYTES % (MANUAL) 12 %; MONOCYTES % (MANUAL) 10 %; NEUTROPHILS % (MANUAL) 74 %; RBC MORPH NORMAL
[2023-04-17] MEDS ORDERED: PANTOPRAZOLE 40 MG (PROTONIX) VIAL IV ONE (14:00)
--- NOTE | 2023-04-17 15:02 | Diagnostic Imaging Report ---
EXAMINATION: CT abdomen and pelvis without contrast. TECHNIQUE: Multiple contiguous axial images were obtained through the abdomen and pelvis without the use of intravenous contrast. All CT scans use one or more of the following dose optimizing techniques: automated exposure control, MA and/or KvP adjustment based on patient size and exam type or iterative reconstruction. HISTORY: Left lower quadrant pain. COMPARISON: None available. FINDINGS: Limited views of the lower thorax show distention of the esophagus with fluid. A pacemaker is present. There is a cyst in the liver. No suspicious liver lesion. There is no biliary ductal dilation. Gallbladder is normal. Pancreas is normal. Spleen is normal. Adrenal glands are normal. There are cysts in both kidneys. No suspicious renal lesion. There is no hydronephrosis. Urinary bladder is normal. There is a right inguinal hernia containing a loop of small bowel. There is moderate dilation of the bowel caldwell upstream and downstream from the hernia but the bowel is narrowed as it enters and exits the hernia sac. No free fluid or air. No abdominal or pelvic lymphadenopathy. Abdominal aorta measures 3.2 x 2.6 cm. There is no suspicious osseus lesion. IMPRESSION: 1. Bowel loops are moderately dilated. There is a right inguinal hernia containing small bowel with narrowing of the bowel as it enters and exits the hernia sac. Both upstream and downstream bowel is dilated. The hernia may be incidental or may be representing a partial obstruction. 2. The esophagus is distended with fluid. Dictated by: Dictated on workstation # [id number]
[2023-04-17 15:13] LABS: BILIRUBIN,URINE NEGATIVE (NEGATIVE); CLARITY,URINE SL CLOUDY; COLOR,URINE YELLOW; GLUCOSE, URINE (UA) NEGATIVE (NEGATIVE); KETONES,URINE NEGATIVE (NEGATIVE); LEUKOCYTE ESTERASE ,URINE NEGATIVE (NEGATIVE); NITRITE,URINE NEGATIVE (NEGATIVE); PROTEIN,URINE 2+ (NEGATIVE)
[2023-04-17 15:21] LABS: BACTERIA,URINE NEGATIVE /HPF; RBC,URINE 0-2 /HPF
[2023-04-17 15:22] LABS: SQUAMOUS EPITHELIAL CELL,UR RARE /HPF
--- NOTE | 2023-04-17 16:01 | Consultation - Surgery ---
History of Present Illness History of Present Illness Patient Consulted On(jes/time) 04/17/23 15:56 Time Seen by Provider: 15:06 History of Present Illness Surgery asked to consult regarding abdominal pain and coffee ground emesis. HPI per ED: Patient is an 87-year-old male who presents to the emergency room with a chief complaint of left lower quadrant abdominal pain, diarrhea since early yesterday morning and drooling what looks like coffee-ground emesis type material today. states that all the symptoms started yesterday. No recent travel. They have city water. No recent antibiotic usage. He has a history of hypertension and takes daily baby aspirin. He has had no prior abdominal surgeries. states he has never had occult colonoscopy that she is aware of. They have been 66 years. He denies any fevers or chills. He thought that the coffee-ground type material in his mouth was due to possibly rueda ving swallowed some broken teeth back in January. No intraoral injury is observed. He is not short of breath, not having any chest pain. No lower extremity swelling. states that he has been very weak and not eating or drinking the last 36 hours. She denies any bright red blood in the stool. He takes acetaminophen for pain. No NSAIDS. No recent pepto. 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 Has had "heartburn" type symptoms. He did take 2 immodium tablets yesterday. When I saw pt in the ER, he was laying in bed comfortable and did not appear to be in severe pain. states he hasn't eaten for 2 days, which is abnormal and pt piped up to say he wasn't hungry/didn't feel like eating. states that when he has diarrhea like this, he sometimes won't eat for a day.....but this was too long. She states it is usually when he eats "too much sugar" is when he has diarrhea. She also reports that he had Hiatal hernia repair and when they did it he had "bad parts" and had to have a portion of his esophagus removed. His last EGD was probably over 50 years ago. His also states he has had an inguinal hernia for years and it has never bother ed him (I asked because I saw it on CT). Allergies and Home Medications Allergies Coded Allergies: Penicillins (Unverified Allergy, Mild, 12/31/08) Patient Home Medication List Home Medication List Reviewed: Yes Acetaminophen (Tylenol Extra Strength) 500 Mg Tablet, 1,000 MG PO HS, (Reported) Entered as Reported by: JOSE ANTONIO KING on 09/09/21 09 Aspirin (Aspirin EC) 81 Mg Tablet.dr, 81 MG PO DAILY, (Reported) Entered as Reported by: JOSE ANTONIO KING on 09/09/21 0924 Ciprofloxacin HCl (Cipro) 500 Mg Tablet, 500 MG PO BID Prescribed by: MANI SARABIA on 09/10/21 0802 Ciprofloxacin HCl (Ciprofloxacin HCl) 2.5 Ml Drops, 0 ML OP QID Prescribed by: WILY CORLEY on 09/10/21 1017 Famotidine (Acid Energy Project Engineer (FAMOTIDINE)) 20 Mg Tablet, 20 MG PO DAILY, (Reported) Entered as Reported by: VITO GARCES RN on 09/07/211804 Furosemide (Furosemide) 20 Mg Tablet, 20 MG PO DAILY Prescribed by: MANI SARABIA on 09/10/21 08 Losartan Potassium (Losartan Potassium) 100 Mg Tablet, 100 MG PO 1800 BEFORE DINNER, (Reported) Entered as Reported by: VITO GARCES RN on 09/07/21 180 Lovastatin (Lovastatin) 20 Mg Tablet, 20 MG PO HS, (Reported) Entered as Reported by: VITO GARCES RN on 09/07/211804 Metoprolol Succinate (Metoprolol Succinate) 100 Mg Tab.er.24h, 100 MG PO DAILY, (Reported) Entered as Reported by: VITO GARCES RN on 09/07/211804 Past Hmsldfl-Uyuumt-Fncqoo Hx Patient Social History Smoking Status: Former Smoker Alcohol Use?: No Surgeries History of Surgeries: Yes (Hiatal hernia) Surgeries: Pacemaker Respiratory History of Respiratory Disorde: No Cardiovascular History of Cardiac Disorders: Yes (congestive heart failure, hx of heart block) Cardiac Disorders: Coronary Artery Disease, Hypertension Reproductive System Hx Reproductive Disorders: No Genitourinary History of Genitourinary Disor: Yes Genitourinary Disorders: Renal Failure Gastrointestinal History of Gastrointestinal Di: Yes Gastrointestinal Disorders: Gastroesophageal Reflux, Chronic Diarrhea Musculoskeletal History of Musculoskeletal Dis: Yes Musculoskeletal Disorders: Arthritis, Chronic Back Pain Endocrine History of Endocrine Disorders: No HEENT History of HEENT Disorders: Yes HEENT Disorders: Cataract Hearing Impairment: Hard of Hearing Cancer History of Cancer: No Integumentary History of Skin or Integumenta: Yes (Raynauds) Family Medical History Significant Family History: Heart Disease (siblings and parents), Cancer (Jennifer malloy had Prostate CA), Diabetes (siblings and parents), Hypertension Review of Systems-General Constitutional: No chills; malaise, weakness EENTM: hearing loss, other ( drooling); No epistaxis, No throat swelling Respiratory: No cough, No dyspnea on exertion, No hemoptysis Cardiovascular: No chest pain, No edema; Hx of Intervention Gastrointestinal: No abdominal pain; diarrhea; No nausea, No vomiting Genitourinary: dysuria; No hematuria; hesitancy Musculoskeletal: joint pain, joint swelling, muscle stiffness Skin: No change in color, No change in hair/nails Psychiatric/Neurological: Denies Anxiety, Denies Depressed, Denies Seizure; Tremors Physical Exam-General Problems Physical Exam Vital Signs Vital Signs - First Documented 04/17/23 12:56 Temp 36.0 Pulse 97 Resp 16 B/P (MAP) 151/72 (98) Pulse Ox 97 O2 Delivery Room Air Capillary Refill : Less Than 3 Seconds General Appearance: WD/WN, mild distress Eyes: Bilateral Eye PERRL, Bilateral Eye EOMI HEENT: pharynx normal; No scleral icterus (R), No scleral icterus (L) Neck: non-tender, supple Respiratory: lungs clear, normal breath sounds, no respiratory distress, no accessory muscle use Cardiovascular: regular rate, rhythm, no murmur Gastrointestinal: non tender, soft, no organomegaly; No distended; hernia (incarcerated right inguinal hernia, but feels like it goes down almost completely and then fills back up) Rectal: deferred Back: no CVA tenderness, no vertebral tenderness Extremities: no pedal edema, no calf tenderness, normal capillary refill Neurologic/Psychiatric: 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 as tested, alert, oriented x 3 Skin: normal color, warm/dry, other (forearms and hands are purple, secondary to Raynauds) Lymphatic: no adenopathy (neck, axilla or groin) Data Review Labs Laboratory Tests 04/17/23 13:03: White Blood Count 13.0H, Red Blood Count 4.83, Hemoglobin 15.5, Hematocrit 47, Mean Corpuscular Volume 96, Mean Corpuscular Hemoglobin 32, Mean Corpuscular Hemoglobin Concent 33, Red Cell Distribution Width 12.9, Platelet Count 160, Mean Platelet Volume 11.8, Immature Granulocyte % (Auto) 0, Neutrophils (%) (Auto) 78H, Lymphocytes (%) (Auto) 8L, Monocytes (%) (Auto) 13H, Eosinophils (%) (Auto) 1, Basophils (%) (Auto) 0, Neutrophils # (Auto) 10.2H, Lymphocytes # (Auto) 1.0, Monocytes # (Auto) 1.6H, Eosinophils # (Auto) 0.1, Basophils # (Auto) 0.1, Immature Granulocyte # (Auto) 0.0, Neutrophils % (Manual) 74, Lymphocytes % (Manual) 12, Monocytes % (Manual) 10, Eosinophils % (Manual) 1, Basophils % (Manual) 0, Band Neutrophils 3, Blood Morphology Comment NORMAL, Sodium Level 137, Potassium Level 3.9, Chloride Level 105, Carbon Dioxide Level 21, Anion Gap 11, Blood Urea Nitrogen 57H, Creatinine 1.38H, Estimat Glomerular Filtration Rate 49, BUN/Creatinine Ratio 41, Glucose Level 108H, Calcium Level 9.8, Corrected Calcium 9.6, Total Bilirubin 1.2H, Aspartate Amino Transf (AST/SGOT) 24, Alanine Aminotransferase (ALT/SGPT) 18, Alkaline Phosphatase 67, Total Protein 7.6, Albumin 4.3 04/17/23 15:07: Urine Color YELLOW, Urine Clarity SL CLOUDY, Urine pH 6.0, Urine Specific Taylor 1.025H, Urine Protein 2+H, Urine Glucose (UA) NEGATIVE, Urine Ketones NEGATIVE, Urine Nitrite NEGATIVE, Urine Bilirubin NEGATIVE, Urine Urobilinogen 0.2, Urine Leukocyte Esterase NEGATIVE, Urine RBC (Auto) 1+H, Urine RBC 0-2, Urine WBC NONE, Urine Squamous Epithelial Cells RARE, Urine Crystals NONE, Urine Bacteria NEGATIVE, Urine Casts PRESENT, Urine Hyaline Casts 2-5H, Urine Mucus NEGATIVE, Urine Culture Indicated NO Radiology Date of Exam:04/17/23 CT ABDOMEN/PELVIS WO EXAMINATION: CT abdomen and pelvis without contrast. TECHNIQUE: Multiple contiguous axial images were obtained through the abdomen and pelvis without the use of intravenous contrast. All CT scans use one or more of the following dose optimizing techniques: automated exposure control, MA and/or KvP adjustment based on patient size and exam type or iterative reconstruction. HISTORY: Left lower quadrant pain. COMPARISON: None available. FINDINGS: Limited views of the lower thorax show distention of the esophagus with fluid. A pacemaker is present. There is a cyst in the liver. No suspicious liver lesion. There is no biliary ductal dilation. Gallbladder is normal. Pancreas is normal. Spleen is normal. Adrenal glands are normal. There are cysts in both kidneys. No suspicious renal lesion. There is no hydronephrosis. Urinary bladder is normal. There is a right inguinal hernia containing a loop of small bowel. There is moderate dilation of the bowel caldwell upstream and downstream from the hernia but the bowel is narrowed as it enters and exits the hernia sac. No free fluid or air. No abdominal or pelvic lymphadenopathy. Abdominal aorta measures 3.2 x 2.6 cm. There is no suspicious osseus lesion. IMPRESSION: 1. Bowel loops are moderately dilated. There is a right inguinal hernia containing small bowel with narrowing of the bowel as it enters and exits the hernia sac. Both upstream and downstream bowel is dilated. The hernia may be incidental or may be representing a partial obstruction. 2. The esophagus is distended with fluid. Dictated on workstation # [id number] Dict: 04/17/23 1447 Trans: 04/17/23 1501 [facility] [id number] Interpreted by: DENISSE LING MD Assessment/Plan Assessment/Plan Assessment/Plan Diarrhea Decreased appetite ??Coffee ground emesis Renal Insufficiency Right inguinal hernia - incarcerated CAD Heart block with Pacemaker insertion I reviewed the CT myself before it was read by the Radiologist and then went over case with ER physician. I am not as concerned about his hernia after talking to pt and his , but feel like he will probably benefit from EGD in the morning. Actually, was asking/hoping that would be done. Will make him NPO after midnight and get consent. Pt is being admitted for renal failure and IV fluids. Will monitor his abdomen and he may need stool studies. Pain control and anti-emetics as needed, can take home meds. MOLLY ANDERSON DO Apr 17, 2023 16:01
--- NOTE | 2023-04-17 16:22 | History & Physical-Hospitalist ---
History of Present Illness HPI/Chief Complaint Chief complaint: GI bleed HPI: This is an 87-year-old male of [facility] who presented to the ER with reports of coffee-ground emesis. Patient reports if he lies down fluid comes out of his mouth. Patient has remained stable with vital signs and BUN is elevated at 57 consistent with blood in the gut. Dr. Zuñiga has seen him and will perform EGD tomorrow. CT scan shows fluid-filled stomach and duodenum. His of 66 years is at the bedside. Source: patient Exam Limitations: no limitations Date Seen 04/17/23 Time Seen by a Provider: 16:30 Attending Physician [facility] PCP Admitting Physician: Attending Physician: Referring Physician Date of Admission Home Medications & Allergies Home Medications Reviewed patient Home Medication Reconciliation performed by pharmacy medication reconciliations fingernail technician and/or nursing. Patients Allergies have been reviewed. Allergies Allergies Coded Allergies Penicillins (Unverified Allergy, Mild, 12/31/08) Past Cdcmmxs-Lntqaj-Fvrvgb Hx Patient Social History Marrital Status: Employed/Student: retired Tobacco Use?: Yes Tobacco type used: Cigarettes Smoking Status: Former Smoker Substance use?: No Alcohol Use?: No Immunizations Up To Date First/Initial COVID19 Vaccinat: None Second COVID19 Vaccination Cabrera: None Tetanus Booster (TDap): Unknown Current Status Advance Directives: No Primary Language: Norwegian Preferred Spoken Language: Norwegian Past Medical History Surgeries: Coronary Stent, Pacemaker Coronary Artery Disease, Hypertension Renal Failure Gastroesophageal Reflux, Chronic Diarrhea Arthritis, Chronic Back Pain Cataract Hearing Impairment: Hard of Hearing PMHx: Coronary artery disease Hypertension SurgHx: Coronary artery stenting Family Medical History Heart Disease (siblings and parents), Cancer (Brother had Prostate CA), Diabetes (siblings and parents), Hypertension Review of Systems Constitutional: see HPI, malaise, weakness Gastrointestinal: abdominal pain, hematemesis, loss of appetite, nausea Physical Exam Physical Exam Vital Signs Vital Signs - First Documented 04/17/23 04/17/23 12:56 17:15 Temp 36.0 Pulse 97 Resp 16 B/P (MAP) 151/72 (98) Pulse Ox 97 O2 Delivery Room Air FiO2 21 Capillary Refill : Less Than 3 Seconds Height, Weight, BMI Height: '" Weight: lbs. oz. kg; 22.00 BMI Method: General Appearance: No Apparent Distress, Chronically ill Eyes: Right Eye Normal Inspection, Right Eye PERRL HEENT: PERRL/EOMI, Normal ENT Inspection, Pharynx Normal, Moist Mucous Membranes Neck: Full Range of Motion, Normal Inspection, Non Tender Respiratory: Chest Non Tender, Lungs Clear, Normal Breath Sounds, No Accessory Muscle Use, No Respiratory Distress Cardiovascular: Regular Rate, Rhythm, No Edema, No Gallop, No JVD, No Murmur, Normal Peripheral Pulses Gastrointestinal: Normal Bowel Sounds, No Organomegaly, No Pulsatile Mass, Non Tender, Soft Back: Normal Inspection, No CVA Tenderness, No Vertebral Tenderness Extremity: Normal Capillary Refill, Normal Inspection, Normal Range of Motion, Non Tender, No Calf Tenderness, No Pedal Edema Neurologic/Psychiatric: Alert, Oriented x3, No Motor/Sensory Deficits, Normal Mood/Affect Skin: Normal Color, Warm/Dry Lymphatic: No Adenopathy Results Results/Procedures Labs Laboratory Tests 04/17/23 13:03 Patient resulted labs reviewed. Assessment/Plan Admission Diagnosis Assessment: Hematemesis Advanced age Pacemaker Coronary stent on aspirin Oral anticoagulation Plan: ICU Observation EGD tomorrow Appreciate Dr. Zuñiga Admission Status: Observation WILY CORLEY DO Apr 17, 2023 16:22
[2023-04-17] MEDS ORDERED: ONDANSETRON 4 MG/2 ML (SDV) Z0FRAN IV PRN (17:00)
[2023-04-17] MEDS ORDERED: oxyCODONE IMMEDIATE RELEASE 5 MG TABLET PO PRN (17:00)
[2023-04-17] MEDS ORDERED: NS IV 500 ML 500 ML IV PRN (17:00)
[2023-04-17] MEDS ORDERED: MILK OF MAGNESIA 400 MG/5 ML 30 ML UDC PO PRN (17:00)
[2023-04-17] MEDS ORDERED: LACTULOSE SYRUP 10GM/15ML (ENULOSE) 30ML UDC PO PRN (17:00)
[2023-04-17] MEDS ORDERED: CALCIUM CARBONATE 500 MG CHEW TABLET PO PRN (17:00)
[2023-04-17] MEDS ORDERED: HYDROmorphone INJECTION 2 MG/ML VIAL IV PRN (17:00)
[2023-04-17] MEDS ORDERED: MELATONIN 3 MG TABLET PO PRN (17:00)
[2023-04-17] MEDS ORDERED: ONDANSETRON 4 MG (ZOFRAN) ORAL DISSOLVE TAB PO PRN (17:00)
[2023-04-17] MEDS ORDERED: diphenhydrAMINE INJ 50 MG/ML VIAL IVP PRN (17:00)
[2023-04-17] MEDS ORDERED: diphenhydrAMINE 25 MG TABLET PO PRN (17:00)
[2023-04-17] MEDS ORDERED: ACETAMINOPHEN 325 MG TABLET PO PRN (17:00)
[2023-04-17] MEDS ORDERED: polyethylene glycoL POWDER 17 GM (MIRALAX) PACK PO PRN (17:00)
[2023-04-17] MEDS ORDERED: ANTACID SUSP 30 ML UDC (MYLANTA) PO PRN (17:00)
[2023-04-17] MEDS ORDERED: BISACODYL 10 MG SUPPOSITORY PR PRN (17:00)
[2023-04-17 17:15] VITALS: BP 141/81
[2023-04-17] MEDS ORDERED: RT-ALBUTEROL SULF 2.5 MG/3 ML PRE-MIX VIAL INH PRN (17:30)
[2023-04-17] MEDS: NS IV 1000 ML 1,000 ML IV SCH (18:07)
[2023-04-17] MEDS ORDERED: RIVA15TA PO (18:15)
[2023-04-17] MEDS: SENNOSIDES 8.6 MG (SENOKOT) TAB PO SCH (20:10)
[2023-04-17] MEDS: DOCUSATE SODIUM 100 MG CAPSULE PO SCH (20:10)
[2023-04-17] MEDS ORDERED: ACETAMINOPHEN 500 MG TABLET PO SCH (21:00)
[2023-04-18 04:53] LABS: BASOPHILS # (AUTO) 0.1 10^3/uL (0.0-0.1); BASOPHILS % (AUTO) 1 % (0-10); MEAN PLATELET VOLUME 11.8 fL (9.0-12.2)
[2023-04-18 04:55] LABS: EOSINOPHILS # (AUTO) 0.2 10^3/uL (0.0-0.3); EOSINOPHILS % (AUTO) 2 % (0-10); HEMATOCRIT 38 % (40-54); HEMOGLOBIN 12.9 g/dL (13.3-17.7); LYMPHOCYTES # (AUTO) 0.7 10^3/uL (1.0-4.0); LYMPHOCYTES % (AUTO) 8 % (12-44); MEAN CORPUSCULAR HEMOGLOBIN 32 pg (25-34); MEAN CORPUSCULAR HGB CONC 34 g/dL (32-36); MEAN CORPUSCULAR VOLUME 95 fL (80-99); MONOCYTES # (AUTO) 1.2 10^3/uL (0.0-1.0); MONOCYTES % (AUTO) 13 % (0-12); NEUTROPHILS # (AUTO) 6.8 10^3/uL (1.8-7.8); NEUTROPHILS % (AUTO) 75 % (42-75); PLATELET COUNT 115 10^3/uL (130-400); WHITE BLOOD COUNT 9.1 10^3/uL (4.3-11.0)
[2023-04-18 05:06] LABS: ALBUMIN 3.1 GM/DL (3.2-4.5)
[2023-04-18 05:07] LABS: CALCIUM 8.4 MG/DL (8.5-10.1)
[2023-04-18 05:08] LABS: TOTAL PROTEIN 5.5 GM/DL (6.4-8.2)
[2023-04-18 05:12] LABS: CREATININE SERUM 0.86 MG/DL (0.60-1.30)
[2023-04-18 05:15] LABS: MAGNESIUM 1.7 MG/DL (1.6-2.4)
[2023-04-18] MEDS ORDERED: KCL 20 MEQ TAB (K-DUR) PO SCH (06:00)
[2023-04-18] MEDS ORDERED: POTASSIUM CL 10MEQ/50ML IVPB 50 ML IV SCH (06:00)
[2023-04-18] MEDS ORDERED: MAGNESIUM 1 GM/100 ML IVPB 100 ML IV SCH (06:00)
[2023-04-18] MEDS: MAGNESIUM 1 GM/100 ML IVPB 100 ML IV SCH ×4 (06:16→09:52)
--- NOTE | 2023-04-18 06:46 | Progress Note - Hospitalist ---
Subjective HPI/CC On Admission Date Seen by Provider: Apr 18, 2023 Time Seen by Provider: 11:00 Chief complaint: GI bleed HPI: This is an 87-year-old male of [facility] who presented to the ER with reports of coffee-ground emesis. Patient reports if he lies down fluid comes out of his mouth. Patient has remained stable with vital signs and BUN is elevated at 57 consistent with blood in the gut. Dr. Zuñiga has seen him and will perform EGD tomorrow. CT scan shows fluid-filled stomach and duodenum. His of 66 years is at the bedside. Objective Exam Vital Signs Vital Signs Date Time Temp Pulse Resp B/P (MAP) Pulse Ox O2 Delivery O2 Flow Rate FiO2 04/18/23 12:30 87 04/18/23 12:00 95 Room Air 04/18/23 11:36 36.4 04/18/23 11:00 10 140/70 (99) 04/17/23 21:58 2.00 04/17/23 17:15 21 Capillary Refill : Less Than 3 Seconds Results/Procedures Lab Laboratory Tests 04/18/23 04:35 Patient resulted labs reviewed. Clinical Quality Measures DVT/VTE Risk/Contraindication: Contraindications-Pharm: Other *list below* Other: WILY WHALEY DO Apr 18, 2023 06:46
[2023-04-18] MEDS: DOCUSATE SODIUM 100 MG CAPSULE PO SCH (07:43)
[2023-04-18] MEDS: SENNOSIDES 8.6 MG (SENOKOT) TAB PO SCH (07:44)
--- NOTE | 2023-04-18 07:54 | Tele-ICU Consult ---
History of Present Illness History of Present Illness Date Seen by Provider: Apr 18, 2023 Time Seen by Provider: 07:44 History of Present Illness eICU critical care consult 87 yo M admitted with coffee grounds/UGI bleed, Hb 15.5, now 12.9, BP has been ok, no CP or SOB on IV PPI and po H2 xiomara CT abd shows umbilical hernia with small bowel inside, may be partial obstruction, also esophagus is has fluid, small bowel has large amount of air, since in MICU not vomiting or having regurgitation., Hx of hiatal hernia and may have had surgery on esophagus, to have EGD today PMH CAD with stent-has been on ASA, PPM HTN CKD GERD chronic diarrhea-not having diarrhea but had it at home Allergies and Home Medications Allergies Coded Allergies: Penicillins (Unverified Allergy, Mild, 12/31/08) Home Medications Acetaminophen 500 Mg Tablet, 1,000 MG PO HS, (Reported) Aspirin 81 Mg Tablet.dr, 81 MG PO DAILY, (Reported) Famotidine 20 Mg Tablet, 20 MG PO DAILY, (Reported) Furosemide 20 Mg Tablet, 20 MG PO DAILY Prescribed by: MANI SARABIA on 09/10/21 0802 Losartan Potassium 100 Mg Tablet, 100 MG PO 1800 BEFORE DINNER, (Reported) Lovastatin 20 Mg Tablet, 20 MG PO HS, (Reported) Metoprolol Succinate 100 Mg Tab.er.24h, 100 MG PO DAILY, (Reported) Rivaroxaban 15 Mg Tablet, 15 MG PO DAILY, (Reported) Past Medical/Social/Family Hx Patient Social History Marrital Status: Employed/Student: retired Tobacco Use?: No Tobacco type used: Cigarettes Smoking Status: Never a Smoker Use of E-Cig and/or Vaping dev: No Substance use?: No Alcohol Use?: No Pt stated abuse/neglect: No Immunizations Up To Date First/Initial COVID19 Vaccinat: None Second COVID19 Vaccination Cabrera: None Tetanus Booster (TDap): Unknown Current Status Advance Directives: No Communicates: Verbally Primary Language: Bahraini Preferred Spoken Language: Bahraini Past Medical History PMHx: Coronary artery disease Hypertension SurgHx: Coronary artery stenting Review of Systems Constitutional: see HPI EENTM: see HPI Respiratory: see HPI Cardiovascular: see HPI Gastrointestinal: see HPI Genitourinary: see HPI Musculoskeletal: see HPI Skin: see HPI Psychiatric/Neurological: See HPI Focused Exam Height, Weight, BMI Height: '" Weight: lbs. oz. kg; 22.46 BMI Method: Exam Exam Patient acknowledged, consented, and participated in this virtual visit which was conducted using real time audio/video Vital Signs Date Time Temp Pulse Resp B/P (MAP) Pulse Ox O2 Delivery O2 Flow Rate FiO2 04/18/23 07:00 80 04/18/23 06:00 68 16 134/68 (90) 97 Room Air 04/18/23 05:00 71 13 131/63 (85) 94 Room Air 04/18/23 04:00 91 Room Air 04/18/23 04:00 71 15 101/62 (75) 94 Room Air 04/18/23 03:00 75 18 126/68 (87) 96 Room Air 04/18/23 02:00 73 16 104/72 (83) 93 Room Air 04/18/23 01:00 71 04/18/23 01:00 71 15 118/66 (83) 94 Room Air 04/18/23 00:00 73 20 123/61 (81) 96 Room Air 04/17/23 23:59 91 Room Air 04/17/23 23:00 71 16 120/58 (78) 94 Room Air 04/17/23 22:00 76 19 127/58 (81) 96 Room Air 04/17/23 21:58 97 Nasal Cannula 2.00 04/17/23 21:56 Room Air 04/17/23 21:00 82 23 127/72 (90) Room Air 04/17/23 20:43 80 04/17/23 20:00 94 Room Air 04/17/23 20:00 82 21 124/67 (86) 94 Room Air 04/17/23 19:00 83 24 123/74 (90) 97 Room Air 04/17/23 19:00 90 04/17/23 18:00 90 15 139/79 (99) Room Air 04/17/23 17:18 98 Room Air 04/17/23 17:15 36.0 84 98 21 04/17/23 17:00 Room Air 04/17/23 17:00 87 15 156/84 (108) Room Air 04/17/23 17:00 90 04/17/23 16:30 36.4 68 16 134/82 97 Room Air 04/17/23 14:10 84 16 141/81 (101) 98 Room Air 04/17/23 12:56 36.0 97 16 151/72 (98) 97 Room Air I & O 04/18/23 07:00 Intake Total 2050 ml Output Total 350 ml Balance 1700 ml Height & Weight Height: '" Weight: lbs. oz. kg; 22.46 BMI Method: General Appearance: No Apparent Distress, Chronically ill HEENT: PERRL/EOMI, Normal ENT Inspection, Pharynx Normal, Moist Mucous Membranes Neck: Full Range of Motion, Normal Inspection, Non Tender Respiratory: Chest Non Tender, Lungs Clear, Normal Breath Sounds, No Accessory Muscle Use, No Respiratory Distress Cardiovascular: Regular Rate, Rhythm, No Edema, No Gallop, No JVD, No Murmur, Normal Peripheral Pulses Capillary Refill: Less Than 3 Seconds Gastrointestinal: normal bowel sounds, non tender, soft, no organomegaly; No distended; hernia (incarcerated right inguinal hernia, but feels like it goes down almost completely and then fills back up) Extremity: Normal Capillary Refill, Normal Inspection, Normal Range of Motion, Non Tender, No Calf Tenderness, No Pedal Edema Neurologic/Psychiatric: Alert, Oriented x3, No Motor/Sensory Deficits, Normal Mood/Affect Skin: Normal Color, Warm/Dry Lymphatic: No Adenopathy Results Lab Laboratory Tests 04/17/23 13:03 04/18/23 04:35 Assessment/Plan Assessment/Plan Possible small bowel obstruction, christiano real estate listing consultant has seen pt, to have EGD today continue IV PPI or H2 xiomara but not both follow Hb Critical Care: Critically Ill Patient Time spent with patient (mins): 20 LANI BARKER MD Apr 18, 2023 07:54
[2023-04-18] MEDS: NS IV 1000 ML 1,000 ML IV SCH (08:07)
[2023-04-18 08:27] LABS: INR 1.1 (0.8-1.4)
[2023-04-18] MEDS ORDERED: PANTOPRAZOLE 40 MG (PROTONIX) VIAL IV SCH (09:00)
[2023-04-18] MEDS ORDERED: FAMOTIDINE 20 MG TABLET PO SCH (09:00)
[2023-04-18] MEDS ORDERED: meTOprolol SUCCINATE 100 MG (TOPROL XL) TAB PO SCH (09:00)
[2023-04-18] MEDS ORDERED: LACTATED RINGERS 1,000 ML IV STA (12:00)
[2023-04-18] MEDS ORDERED: LACTATED RINGERS 1,000 ML IV ONE (12:12)
[2023-04-18] MEDS ORDERED: proPOfol 200 MG/20 ML (DIPRIVAN) VIAL IV ONE (12:13)
--- NOTE | 2023-04-18 12:18 | Progress Note - Surgery ---
Subjective Time Seen by a Provider: 11:59 Subjective/Events-last exam Pt seen and examined, states he has some minimal abdominal pain. Nurse states no coffee ground emesis over night. Review of Systems General: No Chills, No Night Sweats Pulmonary: No Dyspnea, No Cough Cardiovascular: No: Chest Pain, Palpitations Gastrointestinal: Abdominal Pain; No: Nausea, Vomiting Objective Exam Vital Signs Date Time Temp Pulse Resp B/P (MAP) Pulse Ox O2 Delivery O2 Flow Rate FiO2 04/18/23 11:36 36.4 04/18/23 11:00 82 10 140/70 (99) 93 Room Air 04/18/23 10:00 71 17 132/69 (95) 90 Room Air 04/18/23 09:00 70 17 136/64 (94) Room Air 04/18/23 08:10 100 Room Air 04/18/23 08:00 71 19 135/66 (89) 91 Room Air 04/18/23 07:58 36.3 04/18/23 07:00 86 21 120/89 (91) 92 Room Air 04/18/23 07:00 80 04/18/23 06:00 68 16 134/68 (90) 97 Room Air 04/18/23 05:00 71 13 131/63 (85) 94 Room Air 04/18/23 04:00 91 Room Air 04/18/23 04:00 71 15 101/62 (75) 94 Room Air 04/18/23 03:00 75 18 126/68 (87) 96 Room Air 04/18/23 02:00 73 16 104/72 (83) 93 Room Air 04/18/23 01:00 71 04/18/23 01:00 71 15 118/66 (83) 94 Room Air 04/18/23 00:00 73 20 123/61 (81) 96 Room Air 04/17/23 23:59 91 Room Air 04/17/23 23:00 71 16 120/58 (78) 94 Room Air 04/17/23 22:00 76 19 127/58 (81) 96 Room Air 04/17/23 21:58 97 Nasal Cannula 2.00 04/17/23 21:56 Room Air 04/17/23 21:00 82 23 127/72 (90) Room Air 04/17/23 20:43 80 04/17/23 20:00 94 Room Air 04/17/23 20:00 82 21 124/67 (86) 94 Room Air 04/17/23 19:00 83 24 123/74 (90) 97 Room Air 04/17/23 19:00 90 04/17/23 18:00 90 15 139/79 (99) Room Air 04/17/23 17:18 98 Room Air 04/17/23 17:15 36.0 84 98 21 04/17/23 17:00 Room Air 04/17/23 17:00 87 15 156/84 (108) Room Air 04/17/23 17:00 90 04/17/23 16:30 36.4 68 16 134/82 97 Room Air 04/17/23 14:10 84 16 141/81 (101) 98 Room Air 04/17/23 12:56 36.0 97 16 151/72 (98) 97 Room Air I & O 04/18/23 07:00 Intake Total 2050 ml Output Total 350 ml Balance 1700 ml Capillary Refill : Less Than 3 Seconds General Appearance: No Apparent Distress, Chronically ill HEENT: Moist Mucous Membranes Respiratory: Lungs Clear, Normal Breath Sounds, No Accessory Muscle Use, No Respiratory Distress Cardiovascular: Regular Rate, Rhythm, No Murmur Gastrointestinal: soft, no organomegaly; No distended; tenderness (with deep palpation), hernia (incarcerated right inguinal hernia, but feels like it goes down almost completely and then fills back up. Tender when pushed) Extremity: No Pedal Edema Results Lab Laboratory Tests 04/17/23 13:03: White Blood Count 13.0H, Red Blood Count 4.83, Hemoglobin 15.5, Hematocrit 47, Mean Corpuscular Volume 96, Mean Corpuscular Hemoglobin 32, Mean Corpuscular Hemoglobin Concent 33, Red Cell Distribution Width 12.9, Platelet Count 160, Mean Platelet Volume 11.8, Immature Granulocyte % (Auto) 0, Neutrophils (%) (Auto) 78H, Lymphocytes (%) (Auto) 8L, Monocytes (%) (Auto) 13H, Eosinophils (%) (Auto) 1, Basophils (%) (Auto) 0, Neutrophils # (Auto) 10.2H, Lymphocytes # (Auto) 1.0, Monocytes # (Auto) 1.6H, Eosinophils # (Auto) 0.1, Basophils # (Auto) 0.1, Immature Granulocyte # (Auto) 0.0, Neutrophils % (Manual) 74, Lymphocytes % (Manual) 12, Monocytes % (Manual) 10, Eosinophils % (Manual) 1, Basophils % (Manual) 0, Band Neutrophils 3, Blood Morphology Comment NORMAL, Sodium Level 137, Potassium Level 3.9, Chloride Level 105, Carbon Dioxide Level 21, Anion Gap 11, Blood Urea Nitrogen 57H, Creatinine 1.38H, Estimat Glomerular Filtration Rate 49, BUN/Creatinine Ratio 41, Glucose Level 108H, Calcium Level 9.8, Corrected Calcium 9.6, Total Bilirubin 1.2H, Aspartate Amino Transf (AST/SGOT) 24, Alanine Aminotransferase (ALT/SGPT) 18, Alkaline Phosphatase 67, Total Protein 7.6, Albumin 4.3 04/17/23 15:07: Urine Color YELLOW, Urine Clarity SL CLOUDY, Urine pH 6.0, Urine Specific [place] 1.025H, Urine Protein 2+H, Urine Glucose (UA) NEGATIVE, Urine Ketones NEGATIVE, Urine Nitrite NEGATIVE, Urine Bilirubin NEGATIVE, Urine Urobilinogen 0.2, Urine Leukocyte Esterase NEGATIVE, Urine RBC (Auto) 1+H, Urine RBC 0-2, Urine WBC NONE, Urine Squamous Epithelial Cells RARE, Urine Crystals NONE, Urine Bacteria NEGATIVE, Urine Casts PRESENT, Urine Hyaline Casts 2-5H, Urine Mucus NEGATIVE, Urine Culture Indicated NO 04/18/23 04:35: White Blood Count 9.1, Red Blood Count 3.99L, Hemoglobin 12.9L, Hematocrit 38L, Mean Corpuscular Volume 95, Mean Corpuscular Hemoglobin 32, Mean Corpuscular Hemoglobin Concent 34, Red Cell Distribution Width 12.8, Platelet Count 115L, Mean Platelet Volume 11.8, Immature Granulocyte % (Auto) 0, Neutrophils (%) (Auto) 75, Lymphocytes (%) (Auto) 8L, Monocytes (%) (Auto) 13H, Eosinophils (%) (Auto) 2, Basophils (%) (Auto) 1, Neutrophils # (Auto) 6.8, Lymphocytes # (Auto) 0.7L, Monocytes # (Auto) 1.2H, Eosinophils # (Auto) 0.2, Basophils # (Auto) 0.1, Immature Granulocyte # (Auto) 0.0, Sodium Level 138, Potassium Level 4.0, Chloride Level 112H, Carbon Dioxide Level 19L, Anion Gap 7, Blood Urea Nitrogen 34H, Creatinine 0.86, Estimat Glomerular Filtration Rate 83, BUN/Creatinine Ratio 40, Glucose Level 91, Calcium Level 8.4L, Corrected Calcium 9.1, Total Bilirubin 1.0, Aspartate Amino Transf (AST/SGOT) 21, Alanine Aminotransferase (ALT/SGPT) 13, Alkaline Phosphatase 51, Total Protein 5.5L, Albumin 3.1L, Percent Immature Platelet Fraction 5.7, Phosphorus Level 2.0L, Magnesium Level 1.7 04/18/23 04:40: Prothrombin Time 14.0, INR Comment 1.1, Activated Partial Thromboplast Time 31 Assessment/Plan Assessment/Plan Assessment/Plan Diarrhea Decreased appetite ??Coffee ground emesis Renal Insufficiency Right inguinal hernia - incarcerated CAD Heart block with Pacemaker insertion Plan for EGD today, will monitor his abdomen and he may need stool studies. Pain control and anti-emetics as needed, can take home meds. Clinical Quality Measures DVT/VTE Risk/Contraindication: Contraindications-Pharm: Other *list below* Other: MOLLY MATTHEWS DO Apr 18, 2023 12:18
[2023-04-18 12:36] VITALS: BP 124/61
[2023-04-18 12:41] VITALS: BP 124/66
--- NOTE | 2023-04-18 12:49 | Anesthesia-General Post-Op ---
MAC Patient Condition Mental Status/LOC: Same as Preop Cardiovascular: Satisfactory Nausea/Vomiting: Absent Respiratory: Satisfactory Pain: Controlled Complications: Absent Post Op Complications Complications None Follow Up Care/Instructions Patient Instructions None needed. Anesthesiology Discharge Order Discharge Order Patient is doing well, no complaints, stable vital signs, no apparent adverse anesthesia problems. No complications reported per nursing. MALENA MENDIOLA CRNA Apr 18, 2023 12:49
[2023-04-18] MEDS ORDERED: PANT40TA2 PO (13:13)
[2023-04-18] MEDS ORDERED: SUCR1TAB36 PO (13:13)
--- NOTE | 2023-04-18 13:15 | Discharge Summary ---
Discharge Summary Hospital Course Was the Problem List Reviewed?: Yes Problems/Dx: (1) Gastritis Hospital Course Date of Admission: Apr 17, 2023 at 16:46 Admission Diagnosis : [facility] Date of Discharge: 04/18/23 Discharge Diagnosis: [ ] Hospital Course: Short course after he was admitted for concern of coffee-ground emesis. Dr Zuñiga consulted and performed EGD revealing gastritis. PPI and Carafate were initiated and noted 6 ounces of saliva in the stomach retained and he will need further w/u to evaluate any additional conditions Labs and Pending Lab Test: Laboratory Tests 04/17/23 15:07: Urine Color YELLOW, Urine Clarity SL CLOUDY, Urine pH 6.0, Urine Specific [place] 1.025H, Urine Protein 2+H, Urine Glucose (UA) NEGATIVE, Urine Ketones NEGATIVE, Urine Nitrite NEGATIVE, Urine Bilirubin NEGATIVE, Urine Urobilinogen 0.2, Urine Leukocyte Esterase NEGATIVE, Urine RBC (Auto) 1+H, Urine RBC 0-2, Urine WBC NONE, Urine Squamous Epithelial Cells RARE, Urine Crystals NONE, Urine Bacteria NEGATIVE, Urine Casts PRESENT, Urine Hyaline Casts 2-5H, Urine Mucus NEGATIVE, Urine Culture Indicated NO 04/18/23 04:35: White Blood Count 9.1, Red Blood Count 3.99L, Hemoglobin 12.9L, Hematocrit 38L, Mean Corpuscular Volume 95, Mean Corpuscular Hemoglobin 32, Mean Corpuscular Hemoglobin Concent 34, Red Cell Distribution Width 12.8, Platelet Count 115L, Me an Platelet Volume 11.8, Immature Granulocyte % (Auto) 0, Neutrophils (%) (Auto) 75, Lymphocytes (%) (Auto) 8L, Monocytes (%) (Auto) 13H, Eosinophils (%) (Auto) 2, Basophils (%) (Auto) 1, Neutrophils # (Auto) 6.8, Lymphocytes # (Auto) 0.7L, Monocytes # (Auto) 1.2H, Eosinophils # (Auto) 0.2, Basophils # (Auto) 0.1, Immature Granulocyte # (Auto) 0.0, Percent Immature Platelet Fraction 5.7, Sodium Level 138, Potassium Level 4.0, Chloride Level 112H, Carbon Dioxide Level 19L, Anion Gap 7, Blood Urea Nitrogen 34H, Creatinine 0.86, Estimat Glomerular Filtration Rate 83, BUN/Creatinine Ratio 40, Glucose Level 91, Calcium Level 8.4L, Corrected Calcium 9.1, Phosphorus Level 2.0L, Magnesium Level 1.7, Total Bilirubin 1.0, Aspartate Amino Transf (AST/SGOT) 21, Alanine Aminotransferase (ALT/SGPT) 13, Alkaline Phosphatase 51, Total Protein 5.5L, Albumin 3.1L 04/18/23 04:40: Prothrombin Time 14.0, INR Comment 1.1, Activated Partial Thromboplast Time 31 Home Meds Active Carafate (Sucralfate) 1 Gram Tablet 1 Gm PO ACHS Protonix (Pantoprazole Sodium) 40 Mg Tablet.dr 40 Mg PO BID Furosemide 20 Mg Tablet 20 Mg PO DAILY Reported Xarelto (Rivaroxaban) 15 Mg Tablet 15 Mg PO DAILY Tylenol Extra Strength (Acetaminophen) 500 Mg Tablet 1,000 Mg PO HS Aspirin EC (Aspirin) 81 Mg Tablet.dr 81 Mg PO DAILY Acid Data Management Analyst (FAMOTIDINE) (Famotidine) 20 Mg Tablet 20 Mg PO DAILY Losartan Potassium 100 Mg Tablet 100 Mg PO 1800 BEFORE DINNER Metoprolol Succinate 100 Mg Tab.er.24h 100 Mg PO DAILY Lovastatin 20 Mg Tablet 20 Mg PO HS Assessment/Pt Instructions PCP 1 week Discharge Planning: <30 minutes discharge planning Discharge Physical Examination Vital Signs Vital Signs Date Time Temp Pulse Resp B/P (MAP) Pulse Ox O2 Delivery O2 Flow Rate FiO2 04/18/23 12:30 87 04/18/23 12:00 95 Room Air 04/18/23 11:36 36.4 04/18/23 11:00 10 140/70 (99) 04/17/23 21:58 2.00 04/17/23 17:15 21 General Appearance: Chronically ill Respiratory: Lungs Clear Cardiovascular: Regular Rate, Rhythm Allergies: Coded Allergies: Penicillins (Unverified Allergy, Mild, 12/31/08) Discharge Summary Date of Admission Apr 17, 2023 at 16:46 Date of Discharge Discharge Date: Apr 18, 2023 Admission Diagnosis Assessment: Hematemesis Advanced age Pacemaker Coronary stent on aspirin Oral anticoagulation Plan: ICU Observation EGD tomorrow Appreciate Dr. Zuñiga Clinical Quality Measures DVT/VTE Risk/Contraindication: Contraindications-Pharm: Other *list below* Other: WILY WHALEY DO Apr 18, 2023 13:15
--- NOTE | 2023-04-18 13:26 | Progress Note-Post Operative ---
Post-Operative Progess Note Surgeon (s)/Splicer Operator (s) Surgeon MOLLY ANDERSON DO Splicer Operator: none Pre-Operative Diagnosis Coffee Ground Emesis Post-Operative Diagnosis Duodenal ulcers Hiatal Hernia ??Dilated esophagus vs stomach replacing esophagus Procedure & Operative Findings Date of Procedure 04/18/23 Procedure Performed/Findings EGD with bx PROCEDURE NOTE: After informed consent was obtained, the patient was brought to the endoscopy suite, placed in bed in left lateral decubitus position. He was administered IV sedation by the COLLECTOR OF PORT who then monitored vitals the entire time, heart rate, blood pressure and pulse ox and the scope was inserted down the mouth through the esophagus into the stomach. On the way down, noted some moderate esophagitis; plus this area was very dilated. In fact, I suctioned out between 150 and 200ml of saliva. I took a picture, pushed into the stomach, pushed past the antrum into the duodenum. Duodenum appeared inflamed with multiple areas of ulceration. I elected to do a biopsy of one of the ulcers. the stomach itself actually looked good with no real inflamation. Therefore, I did not do a biopsy of the antrum or the body of the stomach. I retroflexed the scope, saw what appeared to be a hiatal hernia and took a picture of this. Next, pulled the scope into the GE junction, took another picture of this area; it was very inflamed and then did a biopsy. Pushed the scope back into the stomach, suctioned all the air out of the stomach. At this point pulled the scope up the esophagus and out the mouth. The reminded me that supposedly he had a portion of his esophagus removed during a hiatal hernia repair. That would make more sense about why this area was so dilated. I will try to find old operative report. He probably needs a swallow study and may need some type of motility study. The patient tolerated the procedure, and he recovered in endoscopy suite. Anesthesia Type IV sedation by COLLECTOR OF PORT Estimated Blood Loss Estimated blood loss (mL): scant Specimens/Packing Specimens Removed duodenal ulcer ??GE jxn vs. stomach above diaphragm MOLLY ANDERSON DO Apr 18, 2023 13:26
--- NOTE | 2023-04-18 13:28 | Endoscopy Discharge Instruct ---
Endo Procedure/Findings Findings 1.: Duodenal Ulcer 2.: Hiatal Hernia Discharge Instructions - Activity: You might feel a little sleepy until tomorrow. This is due to the medicine you received to relax you. Until tomorrow, you should: NOT drive a car, operate machinery or power tools. NOT drink any alcoholic beverages. NOT make any important decisions or sign importortant papers. Do not return to work until tomorrow, unless otherwise instructed. Resume previous activities tomorrow. Diet: Start by taking liquids. If you tolerate liquids, advance to solid food. 1.: EGD in 1 year Notify Physician - If you experience excessive bleeding, unusual abdominal pain, fever, or chest pain, contact your doctor immediately. Follow-Up: Other Follow up in my office in next 7-10 days, could even be this . Call for appointment [phone] MOLLY ANDERSON DO Apr 18, 2023 13:28
[2023-04-18] MEDS ORDERED: HURRICAINE EXT TUBE (BENZOCAINE) XX PRN (13:45)
== END 2023-04-18 13:12 | disposition home or self-care (01) ==
LOC: EDUNIT# 12:40 → ER 12:42 → ICU 16:46 → UNDOADMOB 16:46 → ICU 17:10 → UNDODISOB 04-18 13:12
PROVIDERS: ADMIT Internal Medicine; ATTEND Internal Medicine
DX: K21.00 Gastro-esophageal reflux disease with esophagitis, without bleeding (principal); K92.0 Hematemesis; K29.80 Duodenitis without bleeding; K26.9 Duodenal ulcer, unspecified as acute or chronic, without hemorrhage or perforation; K44.9 Diaphragmatic hernia without obstruction or gangrene; I10 Essential (primary) hypertension; E86.0 Dehydration; K52.9 Noninfective gastroenteritis and colitis, unspecified; N28.9 Disorder of kidney and ureter, unspecified; K40.31 Unilateral inguinal hernia, with obstruction, without gangrene, recurrent; I25.10 Atherosclerotic heart disease of native coronary artery without angina pectoris; I45.9 Conduction disorder, unspecified; R63.0 Anorexia; Z95.0 Presence of cardiac pacemaker; Z95.5 Presence of coronary angioplasty implant and graft; Z79.82 Long term (current) use of aspirin; Z79.01 Long term (current) use of anticoagulants; Z87.891 Personal history of nicotine dependence; Z28.310 Unvaccinated for COVID-19
CPT/HCPCS: 43239; 74176; 80053 ×2; 81000; 83735; 84100; 85007; 85025; 85027; 85610; 85730; 87081; 94664; 96361; 96366; 96374; 96375; 96376; 99284; G0378; 36415; 88305